=== PATIENT | female | born 1950 | race Caucasian/White ===

== ENCOUNTER 2018-07-17 09:25 | Emergency (ER) | payer MEDICARE, BC ==
[2018-07-17 09:33] VITALS: RESP 18
[2018-07-17] MEDS ORDERED: SODIUM CHLORIDE 0.9% 1,000 ML IV STA (09:39)
--- NOTE | 2018-07-17 09:58 | ED ---
General Adult HPI - General Chief complaint: Chest Pain Stated complaint: chest pain Source: patient Mode of arrival: wheelchair Limitations: no limitations - History of Present Illness Initial comments: Dictation was produced using [employer] dictation software. please excuse any grammatical, word or spelling errors. Chief Complaint: 67-year-old female with past medical history of atrial fibrillation status post ablation therapy presents with acute onset sharp chest pain at 9 AM History of Present Illness: Patient states that she was at rest when she developed sharp chest pain that radiated to the back. She also reports that he did radiate up the right side of her neck. States that her symptoms started about 9 AM and last for about 30 minutes before symptoms began to arabella. no Paresthesias of the extremities. She denies any symptoms like this in the past. Patient never experienced symptoms like this before. She does not have a history of coronary artery disease. There is strong family history of coronary artery disease in her father who had multiple interventions performed. Patient states that her symptoms are much improved since it started however she does still have some tightness in her right anterior chest. Denies any constitutional symptoms. The ROS documented in this emergency department record has been reviewed and confirmed by me. Those systems with pertinent positive or negative responses have been documented in the HPI. All other systems are other negative and/or noncontributory. - Related Data Home Medications Medication Instructions Recorded Confirmed Aspirin EC [Ecotrin] 325 mg PO DAILY 07/17/18 07/17/18 Flecainide Acetate [Tambocor] 150 mg PO BID 07/17/18 07/17/18 Vitamin B Complex 1 cap PO DAILY 07/17/18 07/17/18 Vitamin D3(Unknown Dose) 1 tab PO DAILY 07/17/18 07/17/18 Allergies Allergy/AdvReac Type Severity Reaction Status Date / Time Beef Containing Products AdvReac SEVERE Verified 07/17/18 09:57 MIGRAINES levofloxacin [From Levaquin] AdvReac Nausea & Verified 07/17/18 09:57 Vomiting & Diarrhea Review of Systems ROS Statement: Those systems with pertinent positive or pertinent negative responses have been documented in the HPI. ROS Other: All systems not noted in ROS Statement are negative. Past Medical History Past Medical History: Atrial Fibrillation History of Any Multi-Drug Resistant Organisms: None Reported Past Surgical History: Appendectomy, Section, Hernia Repair, Hysterectomy, Tonsillectomy Past Psychological History: No Psychological Hx Reported Smoking Status: Never smoker Past Alcohol Use History: Rare Past Drug Use History: None Reported General Exam - General Exam Comments Initial Comments: PHYSICAL EXAM: General Impression: Alert and oriented x3, not in acute distress HEENT: Normocephalic atraumatic, extra-ocular movements intact, pupils equal and reactive to light bilaterally, mucous membranes moist. Cardiovascular: Heart regular rate and rhythm, S1&S2 audible, no murmurs, rubs or gallops Chest: Lungs clear to auscultation bilaterally, no rhonchi, no wheeze, no rales Abdomen: Bowel sounds present, abdomen soft, non-tender, non-distended, no organomegaly Musculoskeletal: Pulses present and equal in all extremities, no peripheral edema Motor: Power 5/5 bilaterally, no focal deficits noted Neurological: CN II-XII grossly intact, no focal motor or sensory deficits noted Skin: Intact with no visualized rashes Psych: Normal affect and mood Limitations: no limitations Course Vital Signs 07/17/18 07/17/18 07/17/18 09:30 11:01 13:29 Temperature 97.8 F Pulse Rate 56 L 50 L 52 L Respiratory 18 18 18 Rate Blood Pressure 193/80 164/75 140/67 O2 Sat by Pulse 99 99 95 Oximetry Medical Decision Making - Medical Decision Making ED course: 67-year-old female presents with chief complaint of chest pain. Vital signs upon arrival shows heart rate of 56, blood pressure 193/80. Patient appears well at this time. She does have equal pulses to bilateral radial pulses. She also does have bilateral dorsalis pedis pulses that are equal. No murmurs heard on physical examination. Patient normally does not have elevated blood pressure. She states that she normally has low blood pressure. There is some suspicion that patient's symptoms represent dissection. EKG was obtained showing no acute processes. Laboratory evaluation obtained. CBC is unremarkable. Coag panel is negative. D-dimer is 0.23. Metabolic panel is unremarkable. Patient has no neurologic deficit. Her pain is controlled. There is very low clinical suspicion that patient's symptoms represent arterial dissection. She decision-making was made with patient and patient's family. They wanted to proceed with CT angio of the chest given that patient did have sharp chest pain that radiated to the back with also radiation to the neck. Symptoms could reflect arterial dissection with radiation to the right neck. Laboratory evaluation obtained showing no acute processes. 2 sets of cardiac troponins were negative. These enzymes were by 3 hours. X-ray shows no acute processes. CT angiogram of the chest shows no evidence of acute disease. No dissection. Patient reevaluated and is expressing no pain. 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 She has good follow-up and opts to see her cereal maker outpatient. Patient told to return to the emergency Department with any changes in her condition or recurrence. Patient is understandable and agreeable to plan. Patient given aspirin. EKG Interpretation: A 12 lead EKG was obtained. It was interpreted by myself and attending physician. There is a P wave before every QRS complex. Rate is 51. Rhythm is sinus bradycardia first-degree AV block, [place] interval 210, QS 90, QTC 47. QT is not prolonged. No ST segment depression or elevation. Overall, this EKG is unremarkable - Lab Data Result diagrams: 07/17/18 09:46 07/17/18 09:46 Lab Results 07/17/18 07/17/18 07/17/18 Range/Units 09:46 09:46 09:46 WBC 8.0 (3.8-10.6) k/uL RBC 4.75 (3.80-5.40) m/uL Hgb 15.1 (11.4-16.0) gm/dL Hct 45.3 (34.0-46.0) % MCV 95.5 (80.0-100.0) fL MCH 31.8 (25.0-35.0) pg MCHC 33.3 (31.0-37.0) g/dL RDW 13.5 (11.5-15.5) % Plt Count 246 (150-450) k/uL Neutrophils % 69 % Lymphocytes % 22 % Monocytes % 5 % Eosinophils % 4 % Basophils % 0 % Neutrophils # 5.5 (1.3-7.7) k/uL Lymphocytes # 1.7 (1.0-4.8) k/uL Monocytes # 0.4 (0-1.0) k/uL Eosinophils # 0.3 (0-0.7) k/uL Basophils # 0.0 (0-0.2) k/uL PT (9.0-12.0) sec INR (<1.2) APTT (22.0-30.0) sec D-Dimer (<0.60) mg/L FEU Sodium 141 (137-145) mmol/L Potassium 4.8 (3.5-5.1) mmol/L Chloride 109 H (98-107) mmol/L Carbon Dioxide 20 L (22-30) mmol/L Anion Gap 12 mmol/L BUN 16 (7-17) mg/dL Creatinine 0.80 (0.52-1.04) mg/dL Est GFR (CKD-EPI)AfAm 89 (>60 ml/min/1.73 sqM) Est GFR (CKD-EPI)NonAf 77 (>60 ml/min/1.73 sqM) Glucose 89 (74-99) mg/dL Calcium 9.4 (8.4-10.2) mg/dL Magnesium 2.1 (1.6-2.3) mg/dL Total Bilirubin 0.9 (0.2-1.3) mg/dL AST 26 (14-36) U/L ALT 28 (9-52) U/L Alkaline Phosphatase 151 H (38-126) U/L Total Creatine Kinase 101 (30-135) U/L CK-MB (CK-2) 2.3 (0.0-2.4) ng/mL CK-MB (CK-2) Rel Index 2.3 Troponin I <0.012 (0.000-0.034) ng/mL Total Protein 7.1 (6.3-8.2) g/dL Albumin 4.4 (3.5-5.0) g/dL Lipase 45 (23-300) U/L 07/17/18 07/17/18 Range/Units 09:46 13:30 WBC (3.8-10.6) k/uL RBC (3.80-5.40) m/uL Hgb (11.4-16.0) gm/dL Hct (34.0-46.0) % MCV (80.0-100.0) fL MCH (25.0-35.0) pg MCHC (31.0-37.0) g/dL RDW (11.5-15.5) % Plt Count (150-450) k/uL Neutrophils % % Lymphocytes % % Monocytes % % Eosinophils % % Basophils % % Neutrophils # (1.3-7.7) k/uL Lymphocytes # (1.0-4.8) k/uL Monocytes # (0-1.0) k/uL Eosinophils # (0-0.7) k/uL Basophils # (0-0.2) k/uL PT 9.4 (9.0-12.0) sec INR 0.9 (<1.2) APTT 22.8 (22.0-30.0) sec D-Dimer 0.23 (<0.60) mg/L FEU Sodium (137-145) mmol/L Potassium (3.5-5.1) mmol/L Chloride (98-107) mmol/L Carbon Dioxide (22-30) mmol/L Anion Gap mmol/L BUN (7-17) mg/dL Creatinine (0.52-1.04) mg/dL Est GFR (CKD-EPI)AfAm (>60 ml/min/1.73 sqM) Est GFR (CKD-EPI)NonAf (>60 ml/min/1.73 sqM) Glucose (74-99) mg/dL Calcium (8.4-10.2) mg/dL Magnesium (1.6-2.3) mg/dL Total Bilirubin (0.2-1.3) mg/dL AST (14-36) U/L ALT (9-52) U/L Alkaline Phosphatase (38-126) U/L Total Creatine Kinase (30-135) U/L CK-MB (CK-2) (0.0-2.4) ng/mL CK-MB (CK-2) Rel Index Troponin I <0.012 (0.000-0.034) ng/mL Total Protein (6.3-8.2) g/dL Albumin (3.5-5.0) g/dL Lipase (23-300) U/L Disposition Clinical Impression: Chest pain Disposition: HOME SELF-CARE Instructions: Chest Pain (ED) Is patient prescribed a controlled substance at d/c from ED?: No Referrals: Daisy Leo MD [Primary Care Provider] - 1-2 days Time of Disposition: 14:35
[2018-07-17 10:27] LABS: Basophils % (A) 0 %; Eosinophils # (A) 0.3 k/uL (0-0.7); Eosinophils % (A) 4 %; HCT 45.3 % (34.0-46.0); HGB 15.1 gm/dL (11.4-16.0); Lymphocytes # (A) 1.7 k/uL (1.0-4.8); Lymphocytes % (A) 22 %; MCH 31.8 pg (25.0-35.0); MCHC 33.3 g/dL (31.0-37.0); MCV 95.5 fL (80.0-100.0); Mean Platelet Volume 6.5; Monocytes # (A) 0.4 k/uL (0-1.0); Monocytes % (A) 5 %; Neutrophils # (A) 5.5 k/uL (1.3-7.7); Neutrophils % (A) 69 %; Platelet Count 246 k/uL (150-450); RBC 4.75 m/uL (3.80-5.40); RDW 13.5 % (11.5-15.5)
[2018-07-17 10:39] LABS: D-Dimer 0.23 mg/L FEU (<0.60); INR 0.9 (<1.2); Partial Thromboplastin Time 22.8 sec (22.0-30.0); Prothrombin Time 9.4 sec (9.0-12.0)
[2018-07-17 10:40] LABS: Albumin 4.4 g/dL (3.5-5.0); Calcium 9.4 mg/dL (8.4-10.2); Magnesium 2.1 mg/dL (1.6-2.3); Potassium 4.8 mmol/L (3.5-5.1); Total Bilirubin 0.9 mg/dL (0.2-1.3); Total Protein 7.1 g/dL (6.3-8.2)
--- NOTE | 2018-07-17 10:50 | XR ---
EXAMINATION TYPE: XR chest 2V DATE OF EXAM: 07/17/2018 COMPARISON: NONE HISTORY: Shortness of breath TECHNIQUE: Frontal and lateral views of the chest are obtained. FINDINGS: Scattered senescent parenchymal changes noted. Hyperinflation compatible with COPD. No evidence for infiltrate. No evidence for atelectasis. Heart size is stable. Mediastinal structures are stable and grossly unremarkable. No evidence for hilar prominence. Degenerative changes dorsal spine. IMPRESSION: 1. No evidence for acute pulmonary disease.
[2018-07-17 11:30] LABS: Creatine Kinase 101 U/L (30-135)
[2018-07-17 11:43] LABS: Creatine Kinase MB 2.3 ng/mL (0.0-2.4); Troponin I <0.012 ng/mL (0.000-0.034)
--- NOTE | 2018-07-17 13:15 | CT ---
EXAMINATION TYPE: CT angio chest DATE OF EXAM: 07/17/2018 COMPARISON: None HISTORY: Chest pains CT DLP: 939 mGycm CONTRAST: CTA thoracic aorta with 3-D reconstruction is performed and without and with IV Contrast, patient inj ected with 100 mL of Isovue 370. Contrast CTA of the thoracic aorta was performed from the lung apex through the upper abdomen. 3D re construction imaging obtained at a separate workstation. CT Chest: THORACIC AORTA: No evidence for thoracic aortic aneurysm. Mild atheromatous changes seen. There is n o evidence for dissection or periaortic collection. LUNGS: Calcified granuloma noted. The lungs are clear and free of infiltrate or atelectasis. No pulm onary nodule or mass is detected. No pleural effusion or CT evidence of interstitial lung disease. MEDIASTINUM: Small pericardial effusion. Pulmonary arteries are well opacified. No evidence for medi astinal hematoma. The heart is not enlarged. No evidence for mediastinal mass or adenopathy. HILAR STRUCTURES: No evidence for mass. No hilar adenopathy is appreciated. OTHER: Noncalcified cholelithiasis. Calcified splenic granulomas. IMPRESSION- 1. No evidence for thoracic aortic aneurysm or dissection. Pulmonary arteries are patent.
[2018-07-17] MEDS ORDERED: ASPIRIN 81 MG PO STA (14:34)
[2018-07-17 14:50] VITALS: BP 129/59; PULSE 80; TEMP 97.6
== END 2018-07-17 14:51 | disposition home or self-care (01) ==
LOC: EC 09:25
DX: R07.9 Chest pain, unspecified (principal); I48.91 Unspecified atrial fibrillation; Z98.890 Other specified postprocedural states; Z82.49 Family history of ischemic heart disease and other diseases of the circulatory system; Z79.82 Long term (current) use of aspirin; Z79.899 Other long term (current) drug therapy; Z91.018 Allergy to other foods; Z88.1 Allergy status to other antibiotic agents
CPT/HCPCS: 36415; 93005; 85379; 80053; 82550; 82553; 83690; 83735; 84484; 85025; 85610; 85730; 71046; 71275; 99285; Q9967

== ENCOUNTER → 2018-12-29 | Outpatient (CLI) | payer MEDICARE, BC ==
--- NOTE | 2018-12-29 20:14 | CONS ---
CONSULTATION REASON FOR CONSULTATION: Sleep apnea. This 68-year-old female patient has paroxysmal atrial fibrillation. She is currently on flecainide and her current rhythm is sinus. Her sleep study was ordered and completed by Dr. Mensah. The patient went to see him for some increased sleepiness, and based on her previous history of paroxysmal atrial fibrillation, a sleep study was conducted. The patient typically goes to bed late. She has some sleep hygiene issues. She eats late snacks. She watches TV. She tries to sleep on the couch and later on moves herself to the bedroom. Her Sravan had sleep apnea and he had loud snoring in the bedroom which was affecting her sleep quality. She will ultimately get out of bed around 5:30 to help with her grandkids going to school. On days when she does not have any commitments, she gets out of bed around 7:00. She has some snoring which is soft. She has nocturia. She has occasional nocturnal palpitations. No grinding of the teeth. No sleepwalking. No waking up choking or gasping for air. No restlessness in the lower extremities, although she has been told by her primary care physician that she has some peripheral neuropathy. No recent weight gain. Her polysomnogram was completed on 09/29/2018. The patient was found to have a sleep efficiency of 77%. She was able to achieve 5 hours and 45 minutes of sleep. Latency to sleep onset was 6.3 minutes. Latency to REM sleep was 20.5 minutes. Sleep architecture was characterized by 7.5% stage I, 75.3% stage II, 10% stage III and 7.2% REM sleep. She was found to have mild obstructive sleep apnea with an AHI of 11. The events were REM-specific and the patient developed severe nocturnal oxygen desaturations during REM only. She spent approximately 15 minutes of the total sleep time at a pulse ox of less than 90%, accounting for less than 5% of the overall sleep time. She had also excessive periodic limb movements; however, these were not associated with arousals. Her periodic limb movement index was 57. She also had one run of atrial fibrillation that converted spontaneously. PAST MEDICAL HISTORY: 1. Paroxysmal atrial fibrillation. 2. Peripheral neuropathy. PAST SURGICAL HISTORY: Includes: 1. Tonsillectomy. 2. Appendectomy. 3. Hernia surgery. 4. Ablation of atrial fibrillation. 5. Two C-sections. 6. Hysterectomy. DRUG ALLERGIES: NOT KNOWN. OUTPATIENT MEDICATIONS: 1. Flecainide. 2. Aspirin. 3. Vitamin B complex. 4. Vitamin D. SOCIAL HISTORY: Nonsmoker. No history of alcoholism. No history of IV drugs. FAMILY HISTORY: Noncontributory. Negative for sleep apnea. Her has HIRA. REVIEW OF SYSTEMS: Twelve-point review of systems was done. Positive findings were all mentioned above in the history of present illness. The patient does not have any problems with falling asleep during the day. She does that only when she is watching a show late in the afternoon. No problems with memory or concentration. No problems with anxiety or depression. No problems with restlessness in the lower extremities, although she has periodic limb movements. She has some issues with claustrophobia. PHYSICAL EXAMINATION: BP is 159/82, pulse 60, respirations 16, temperature 97.5, saturation 96% on room air. Weight is 199, height 5 feet 6 inches. Neck size is 14 inches. BMI 31.6. GENERAL APPEARANCE: Calm, comfortable. Head is atraumatic, normocephalic. NECK: Supple. There is no JVD. No goiter or neck masses. Mallampati class III. LUNGS: Clear to auscultation. HEART: Heart sounds are regular rate and rhythm. Normal S1, S2. No S3, S4. No murmurs. ABDOMEN: Soft, nontender. No organomegaly. EXTREMITIES: No edema. No cyanosis or clubbing. NEUROLOGIC: Alert and oriented x3. No focal neurological deficits. PSYCHIATRIC: Negative for anxiety or depression. SKIN: Negative for any wounds or ulceration. IMPRESSION: 1. Mild obstructive sleep apnea with an apnea/hypopnea index of 11. Patient's disease is REM-specific. 2. Mild nocturnal oxygen desaturation, again REM-specific, in association with obstructive hypopneas, as the patient spent approximately 4% to 5% of her sleep time at a pulse ox of less than 90%. 3. Paroxysmal atrial fibrillation. 4. Peripheral neuropathy with excessive periodic limb movements. These are not causing any significant sleep fragmentation. The patient's PLM index was 57. 5. Abnormalities in sleep architecture with over-representation of stage II sleep with diminished delta wave and REM. 6. Poor sleep hygiene issues, as discussed above. PLAN: I had a lengthy discussion with the patient. Ideally this patient would benefit from CPAP therapy, especially with her history of paroxysmal atrial fibrillation. Her sleep architecture is abnormal and she has enough pathology in her sleep study to recommend CPAP therapy. Nevertheless, she was quite hesitant to initiate treatment at this point. Overall her disease is mild and we should be able to give this patient conservative watchful time periods, during which the patient needs to lose around 10% of her body weight, implement good sleep hygiene measures, extend her sleep hours, eliminate late food and proceed with relaxation techniques and other activities that promote sleep. All of these things were discussed with the patient at length. If she becomes symptomatic and/or her atrial fibrillation becomes an ongoing issue, we will consider re-evaluation and CPAP therapy. She was agreeable to this approach. I will see her back in followup. [place] / IGNACION: [id number] /
== END ==
LOC: SLEEP 16:22
PROVIDERS: ATTEND Internal Medicine Critical Care Medicine
DX: G47.33 Obstructive sleep apnea (adult) (pediatric) (principal); I48.0 Paroxysmal atrial fibrillation; G62.9 Polyneuropathy, unspecified; G47.61 Periodic limb movement disorder; Z79.899 Other long term (current) drug therapy; Z79.82 Long term (current) use of aspirin; Z98.890 Other specified postprocedural states; Z90.89 Acquired absence of other organs; Z90.49 Acquired absence of other specified parts of digestive tract; Z90.710 Acquired absence of both cervix and uterus
CPT/HCPCS: 99211

== ENCOUNTER → 2019-09-29 | Outpatient (CLI) | payer MEDICARE, BC ==
[2019-09-29 11:24] LABS: Basophils # (A) 0.1 k/uL (0-0.2); Basophils % (A) 1 %; Eosinophils # (A) 0.3 k/uL (0-0.7); Eosinophils % (A) 3 %; HCT 43.2 % (34.0-46.0); HGB 14.8 gm/dL (11.4-16.0); Lymphocytes # (A) 1.9 k/uL (1.0-4.8); Lymphocytes % (A) 22 %; MCHC 34.3 g/dL (31.0-37.0); MCV 96.4 fL (80.0-100.0); Mean Platelet Volume 5.7; Monocytes # (A) 0.4 k/uL (0-1.0); Monocytes % (A) 5 %; Neutrophils # (A) 5.7 k/uL (1.3-7.7); Neutrophils % (A) 67 %; Platelet Count 270 k/uL (150-450); RBC 4.48 m/uL (3.80-5.40); RDW 12.8 % (11.5-15.5); WBC 8.4 k/uL (3.8-10.6)
[2019-09-29 16:47] LABS: T4, Free (Free Thyroxine) 0.9 ng/dL (0.80-1.80)
[2019-09-29 16:55] LABS: African American GFR (CKD) 88.4 (60.0-200.0); Albumin 4.5 g/dL (3.80-4.90); Albumin/Globulin Ratio 2.5 (1.60-3.17); Anion Gap 12.2 mmol/L (4.00-12.00); BUN/Creat Ratio 28.75 Ratio (12.00-20.00); Calcium 9.1 mg/dL (8.7-10.3); Carbon Dioxide 23.8 mmol/L (21.6-31.8); Chol/HDL Ratio 3.37; Globulin 1.8 g/dL (1.6-3.3); LDL Cholesterol,Calculated 84.8 mg/dL (0.0-131.0); Non-African American GFR(CKD) 76.3 (60.0-200.0); Potassium 4.3 mmol/L (3.5-5.5); Total Bilirubin 0.8 mg/dL (0.2-1.2); Total Protein 6.3 g/dL (6.2-8.2); VLDL Calculation 17.2 mg/dL (5.00-40.00)
[2019-09-29 19:06] LABS: Hemoglobin A1C 5.5 % (4.0-6.0)
== END | disposition home or self-care (01) ==
LOC: LABWHC1 09:48
PROVIDERS: ATTEND Internal Medicine
DX: M81.0 Age-related osteoporosis without current pathological fracture (principal); E78.2 Mixed hyperlipidemia; I48.91 Unspecified atrial fibrillation; R73.01 Impaired fasting glucose
CPT/HCPCS: 36415; 80053; 80061; 83036; 84439; 84443; 85025

== ENCOUNTER → 2020-12-22 | Outpatient (CLI) | payer MEDICARE, BC ==
--- NOTE | 2020-12-22 13:22 | CT ---
EXAMINATION TYPE: CT angio head neck DATE OF EXAM: 12/22/2020 HISTORY: hemicrania continua, hypertension, pounding JOSE COMPARISON: None. CT DLP: 1328.9 mGycm. Automated Exposure Control for Dose Reduction was Utilized. TECHNIQUE: CTA scan of the head and neck are performed without and with IV Contrast, patient injecte d with 65 mL of Isovue 370, axial images are obtained, coronal and sagittal reformatted images are re viewed. Three-D reconstructed images are created on an independent workstation and reviewed. FINDINGS: Carotid/Vascular Structures: Normal 3 vessel origin from aortic arch without significant plaque or st enosis. Normal origin right common carotid artery from the brachiocephalic artery. No significant tegan que in the common or internal carotid arteries bilaterally including a level of carotid bulbs. Patent bilateral external carotid arteries without significant plaque or stenosis. There is dominant and larger caliber left vertebral artery. Vertebral arteries are patent to the basi lar junction. There are small caliber but patent left posterior communicating artery. There is simila r finding on right. There is no significant focal stenosis or aneurysmal change in the posterior circ ulation. 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 There is no significant focal stenosis or aneurysmal change identified. Other: Noncontrast images show no acute intracranial hemorrhage or midline shift. Mild ventricular an d sulcal prominence. More moderate low-attenuation in the deep and periventricular white matter. Glob es are intact. Loss of normal cervical curvature with mild disc space narrowing C5-C6 level. IMPRESSION: No significant stenosis in common or internal carotid arteries bilaterally. No significan t stenosis or aneurysm at the level of the la posta of Celestin. Mild diffuse cerebral atrophy and modera te nonspecific white matter changes noted on noncontrast CT.
== END | disposition home or self-care (01) ==
LOC: RADCTMAIN 11:56
PROVIDERS: ATTEND Internal Medicine
DX: R90.89 Other abnormal findings on diagnostic imaging of central nervous system (principal)
CPT/HCPCS: 70496; 70498; Q9967

== ENCOUNTER → 2021-01-31 | Outpatient (CLI) | payer MEDICARE, BC ==
--- NOTE | 2021-01-31 12:45 | US ---
EXAMINATION TYPE: US gallbladder DATE OF EXAM: 01/31/2021 COMPARISON: NONE CLINICAL HISTORY: R10.13 DYSPEPSIA. dyspepsia, RUQ pain EXAM MEASUREMENTS: Liver Length: 14.5 cm Gallbladder Wall: 0.2 cm CBD: 0.8 cm this is slightly prominent for the patient's age. Right Kidney: 10.1 x 4.1 x 4.6 cm Pancreas: Obscured by bowel gas Liver: wnl Gallbladder: stones noted Evidence for sonographic Hoyt's sign: no CBD: appears dilated Right Kidney: no evidence of hydronephrosis IMPRESSION: 1. Mild dilatation of the common bile duct. 2. Cholelithiasis is present.
== END ==
LOC: RADUSWWP 06:56
PROVIDERS: ATTEND Internal Medicine
DX: K80.20 Calculus of gallbladder without cholecystitis without obstruction (principal); K83.8 Other specified diseases of biliary tract
CPT/HCPCS: 76705

== ENCOUNTER → 2021-02-07 | Outpatient (CLI) | payer MEDICARE, BC ==
[2021-02-07 10:49] LABS: Basophils # (A) 0.05 X 10*3/uL (0.00-0.10); Basophils % (A) 0.4 %; Eosinophils # (A) 0.29 X 10*3/uL (0.04-0.35); Eosinophils % (A) 2.5 %; HCT 42.2 % (37.2-46.3); Lymphocytes # (A) 1.51 X 10*3/uL (0.90-5.00); MCH 32.3 pg (27.0-32.0); MCHC 33.2 g/dL (32.0-37.0); MCV 97.2 fL (80.0-97.0); Mean Platelet Volume 9.5 fL (9.5-12.2); Monocytes # (A) 0.75 X 10*3/uL (0.20-1.00); Monocytes % (A) 6.4 %; Neutrophils % (A) 77.4 %; Platelet Count 261 X 10*3/uL (140-440); RBC 4.34 X 10*6/uL (4.10-5.20); RDW 12.5 % (11.5-14.5); WBC 11.64 X 10*3/uL (4.50-10.00)
[2021-02-07 13:31] LABS: African American GFR (CKD) 66.6 (60.0-200.0); Albumin 4.6 g/dL (3.80-4.90); Albumin/Globulin Ratio 2.56 (1.60-3.17); Calcium 9.6 mg/dL (8.7-10.3); Chol/HDL Ratio 3.16; Globulin 1.8 g/dL (1.6-3.3); LDL Cholesterol,Calculated 81.8 mg/dL (0.0-131.0); Non-African American GFR(CKD) 57.4 (60.0-200.0); Potassium 4.3 mmol/L (3.5-5.5); Total Bilirubin 0.8 mg/dL (0.2-1.2); Total Protein 6.4 g/dL (6.2-8.2); VLDL Calculation 13.2 mg/dL (5.00-40.00)
== END | disposition home or self-care (01) ==
LOC: LABWHC1 06:57
PROVIDERS: ATTEND Internal Medicine
DX: Z00.00 Encounter for general adult medical examination without abnormal findings (principal); E55.9 Vitamin D deficiency, unspecified; E78.2 Mixed hyperlipidemia
CPT/HCPCS: 36415; 80053; 80061; 82306; 84443; 85025

== ENCOUNTER → 2021-02-19 | Outpatient (CLI) | payer MEDICARE, BC ==
--- NOTE | 2021-02-20 07:14 | CT ---
EXAMINATION TYPE: CT abdomen pelvis wo/w con DATE OF EXAM: 02/19/2021 COMPARISON: 08/05/2010 HISTORY: RUQ pain, hx diverticulitis CT DLP: 1873.30 mGycm CONTRAST: CT scan of the abdomen and pelvis is performed without and with Oral Contrast and with IV Contrast, p atient injected with 100 mL of Isovue 300. FINDINGS: LUNG BASES-: No visible nodule. No infiltrate. LIVER/GB: Calcified gallstones identified. No space occupying hepatic lesion. Biliary tree is of norm al caliber. PANCREAS: No inflammation. No distinct mass. SPLEEN: No splenic enlargement. No lesion seen. Splenic granulomas noted. ADRENALS: No nodule. No thickening. KIDNEYS/BLADDER: No hydronephrosis. No nephrolithiasis. No distinct renal mass. Urinary bladder g rossly unremarkable. BOWEL: Normal appendix. Normal bowel caliber. No inflammation. GENITAL ORGANS: No gross abnormality. LYMPH NODES: No greater than 1cm abdominal or pelvic lymph nodes are appreciated. AORTA: No significant abnormality. OSSEOUS STRUCTURES: 4.6 cm sacral Tarlov cyst. Mild scattered degenerative changes visualized lumbar spine. OTHER: No significant additional abnormality is seen. IMPRESSION: 1. Uncomplicated cholelithiasis. 2. Evidence of remote granulomatous disease. 3. No acute process seen.
== END | disposition home or self-care (01) ==
LOC: RADCTMAIN 14:17
PROVIDERS: ATTEND Surgery
DX: K80.20 Calculus of gallbladder without cholecystitis without obstruction (principal)
CPT/HCPCS: 82565; 84520; 74178; 36415; Q9967

== ENCOUNTER 2021-02-26 07:26 | Day surgery (SDC) | payer MEDICARE, BC ==
[2021-02-20 12:29] VITALS: BMI 30.4
[~2021-02-26 07:26] MED LIST: ACETAMINOPHEN TAB 500 MG TAB PO PRN; DEXAMETHASONE SOD PHOSPHATE 4 MG/ML 1 ML VIAL IV ONE; HEPARIN SODIUM,PORCINE/PF 5,000 UNIT/0.5 ML SYRINGE SQ PRN; HYDROmorphone 0.5 MG/0.5 ML SYRINGE IVP PRN; LIDOCAINE 1% (10MG/ML) FOR IV START INTRADERMA PRN; MIDAZOLAM 2 MG/2 ML VIAL IV PRN; ONDANSETRON 4 MG/2 ML VIAL IVP ONE
[2021-02-26 07:53] VITALS: TEMP 98.2
--- NOTE | 2021-02-26 07:57 | P.HPADDEND ---
H&P Addendum H&P Addendum Date: 02/26/21 Patient's CAT scan was reviewed with her by phone. No other etiology to explain her right-sided pain was seen. We'll proceed with laparoscopic cholecystectomy, possible open today.
[2021-02-26] MEDS: LACTATED RINGERS 1,000 ML IV SCH ×2 (08:03→10:55)
[2021-02-26] MEDS ORDERED: LIDOCAINE 1% INJ 10MG/ML (20 ML MDV) ONE (09:11)
[2021-02-26] MEDS ORDERED: NEOSTIGMINE 1 MG/ML 10 ML VIAL ONE (09:11)
[2021-02-26] MEDS ORDERED: MIDAZOLAM 2 MG/2 ML VIAL ONE (09:11)
[2021-02-26] MEDS ORDERED: GLYCOPYRROLATE 0.2 MG/ML 2 ML VIAL ONE (09:11)
[2021-02-26] MEDS ORDERED: PROPOFOL 10 MG/ML 20 ML VIAL IV ONE (09:11)
[2021-02-26] MEDS ORDERED: fentaNYL (PF) 50 MCG/ML 2 ML AMP ONE (09:11)
[2021-02-26] MEDS ORDERED: ROCURONIUM 10 MG/ML (5 ML VIAL) IV ONE (09:11)
[2021-02-26] MEDS ORDERED: SUCCINYLCHOLINE CHLORIDE 100 MG/5 ML SYR IV ONE (09:11)
[2021-02-26] MEDS ORDERED: BUPIVACAINE (PF) 0.5% 30 ML VIAL SQ ONE ×2 (09:39)
--- NOTE | 2021-02-26 10:15 | P.OP ---
Date of Procedure: 02/26/21 Procedure(s) Performed: PREOPERATIVE DIAGNOSIS: Chronic cholecystitis POSTOPERATIVE DIAGNOSIS: Same PROCEDURE: Laparoscopic cholecystectomy SURGEON: Charity EBL: Minimal see anesthesia record ANESTHESIA: Gen. COMPLICATIONS: None OPERATIVE PROCEDURE: The patient was brought and placed on the operating room table in the supine position. The patient was placed under general anesthesia at that time. The abdomen was prepped and draped in the usual sterile fashion. A small vertical infraumbilical incision was made. The fascia was grasped with the Saskia forceps. The fascia was retracted anteriorly. The Veress needle was advanced into the peritoneal cavity. The saline drop test was normal. Insufflation took place up to 15 mmHg. A 5 mm optical trocar was advanced and the peritoneal cavity. 2 additional 5 mm trochars were placed in the right upper quadrant under direct visualization. A 12 mm trocar was advanced into the epigastric incision site. The gallbladder was retracted superiorly and laterally. The peritoneum overlying the infundibulum was bluntly dissected. The patient's cystic duct was visualized. The junction between the cystic duct common and hepatic duct was identified. The cystic duct was then divided after placement of 3 12 mm clips on the patient's side and one on the specimen side. The cystic artery was identified and clipped as well. A small vessel was seen along the gallbladder fossa and clipped as well. The gallbladder was then removed from the liver bed using electrocautery. The gallbladder was then removed from the epigastric trocar site with an Endo Catch bag. The gallbladder fossa was irrigated with saline. There was no evidence of any bleeding or biliary drainage seen. The fascia at the 12 millimeter site was closed using a Tom-Nick 0 Vicryl stitch. The trochars were then removed. The skin at all 4 sites was closed using a 4-0 Monocryl stitch. Skin glue was utilized on the incision sites. At the end of this procedure the sponge and needle counts were correct. DISPOSITION: Stable to the recovery room
[2021-02-26] MEDS ORDERED: ONDANSETRON 4 MG/2 ML VIAL IVP ONE ×2 (10:52)
[2021-02-26] MEDS ORDERED: HYDROmorphone 0.5 MG/0.5 ML SYRINGE IVP ONE ×2 (10:52)
[2021-02-26] MEDS ORDERED: METOCLOPRAMIDE 5 MG/ML 2 ML VIAL IVP ONE (11:09)
[2021-02-26] MEDS ORDERED: KETOROLAC 15 MG/ML 1 ML VIAL ONE (11:56)
[2021-02-26] MEDS ORDERED: ACETAMINOPHEN TAB 325 MG TAB PO SCH (12:00)
[2021-02-26] MEDS ORDERED: KETOROLAC 15 MG/ML 1 ML VIAL IVP ONE (12:01)
[2021-02-26] MEDS ORDERED: IBUPROFEN 600 MG TAB PO SCH (13:12)
[2021-02-26 14:51] VITALS: BP 134/80; PULSE 57; RESP 16
== END 2021-02-26 15:21 | disposition home or self-care (01) ==
LOC: OR 07:26
PROVIDERS: ATTEND Surgery
DX: K80.10 Calculus of gallbladder with chronic cholecystitis without obstruction (principal); I10 Essential (primary) hypertension; E78.5 Hyperlipidemia, unspecified; I48.91 Unspecified atrial fibrillation; Z79.82 Long term (current) use of aspirin; Z79.899 Other long term (current) drug therapy
CPT/HCPCS: 88304; 47562; J2250; J1100; J2710; J2765; J0690; J2405; J2001; J3010; J1885; J0330; J2704; J1170; J1644

== ENCOUNTER → 2021-03-13 | Outpatient (CLI) | payer MEDICARE, BC ==
--- NOTE | 2021-03-13 10:15 | BD ---
EXAMINATION TYPE: Axial Bone Density DATE OF EXAM: 03/13/2021 COMPARISON: 04/19/2011 CLINICAL HISTORY: Postmenopausal female. Height: 66 IN Weight: 195 LBS FRAX RISK QUESTIONS: Family History (Parent hip fracture): YES FATHER Secondary Osteoporosis: 3. Menopause before 45: TOTAL HYST AGE 34 RISK FACTORS HISTORY OF: Active: MODERATE Postmenopausal woman: TOTAL HYST AGE 34 Take estrogen and/or progesterone medications: NOT NOW How long: TOOK FOR 2 YEARS AFTER HYSTERECTOMY MEDICATIONS: Additional Medications: VIT D, HEART MEDS, ANTIBIOTIC AUGMENTIN,MULTI VIT, VIT B, EXAM MEASUREMENTS: Bone mineral densitometry was performed using the [employer] System. Bone mineral density as measured about the Lumbar spine is: ----- L1-L4(G/cm2): 1.032 T Score Values are as follows: ----- L2: -1.2 ----- L3: -2.0 ----- L4: -0.5 ----- L1-L4: -1.2 Bone mineral density has: Decreased -0.8% since study of: 04/19/2011 Bone mineral density about the R hip (g/cm2): 0.906 Bone mineral density about the L hip (g/cm2): 0.874 T Score values are as follows: -----R Neck: -1.0 -----L Neck: -1.2 -----R Total: 0.3 -----L Total: -0.2 Bone mineral density has: Decreased -2.6% since study of: 04/19/2011 IMPRESSION: Osteopenia (T Score between -2.5 and -1) remains present. There remains slightly increased risk of fracture and the patient may be considered for treatment. Re-Screen 2-5 years. NOTE: T-SCORE=SD OF THE YOUNG ADULT MEAN.
--- NOTE | 2021-03-13 10:36 | MM ---
Reason for exam: screening (asymptomatic). Last mammogram was performed 9 years and 11 months ago. History: Patient is postmenopausal and history of other cancer. Family history of premenopausal breast cancer in sister. Physical Findings: A clinical breast exam by your physician is recommended on an annual basis and results should be correlated with mammographic findings. MG 3D Screening Mammo W/Cad Bilateral CC and MLO view(s) were taken. XCCL view(s) were taken of the right breast. Prior study comparison: January 14, 2019, mammogram, performed at [facility]. There are scattered fibroglandular densities. There are benign appearing round calcifications bilaterally. There is no discrete abnormality. ASSESSMENT: Benign, BI-RAD 2 RECOMMENDATION: Routine screening mammogram of both breasts in 1 year.
== END | disposition home or self-care (01) ==
LOC: RADMAMWWP 07:21
PROVIDERS: ATTEND Internal Medicine
DX: Z12.31 Encounter for screening mammogram for malignant neoplasm of breast (principal); M85.89 Other specified disorders of bone density and structure, multiple sites; Z80.3 Family history of malignant neoplasm of breast; Z78.0 Asymptomatic menopausal state
CPT/HCPCS: 77063; 77067; 77080

== ENCOUNTER → 2021-05-28 | Outpatient (CLI) | payer MEDICARE, BC ==
--- NOTE | 2021-05-28 11:23 | XR ---
EXAMINATION TYPE: XR facial bones complete DATE OF EXAM: 05/28/2021 HISTORY: Pain trauma TECHNIQUE: Three views of the facial bones are submitted. FINDINGS: No evidence for displaced or depressed facial bone fracture there is opacification of the r ight maxillary sinus. The left maxillary sinus appears to be well-aerated. Soft tissues are radiograp hically intact. IMPRESSION: No evidence for displaced or depressed facial bone fracture. If symptoms persist conside r CT.
== END | disposition home or self-care (01) ==
LOC: RADXRMAIN 10:11
PROVIDERS: ATTEND Internal Medicine
DX: S09.93XA Unspecified injury of face, initial encounter (principal)
CPT/HCPCS: 70150

== ENCOUNTER 2021-08-26 13:26 | Inpatient (IN) | payer MEDICARE, BC ==
--- NOTE | 2021-08-26 14:06 | ED ---
Weakness HPI - General Chief complaint: Weakness Stated complaint: weakness/sob Source: patient Mode of arrival: EMS Limitations: no limitations - History of Present Illness Initial comments: 70 year old female past medical history of A. fib status post ablation who presents emergency department for fevers, cough and weakness. She reports that her symptoms have been present for the past 12 days. She did visit her cousin in [place] who tested positive for Covid. Patient is not vaccinated. States that she has been nauseated with decreased oral intake. Admits to vomiting and some diarrhea. Denies black or bloody stools. No chest pain. Patient has no abdominal pain. No previous underlying pulmonary conditions. Admits to fevers. No other alleviating, precipitating or modifying factors - Related Data Home Medications Medication Instructions Recorded Confirmed Flecainide Acetate [Tambocor] 150 mg PO BID 07/17/18 08/26/21 Cholecalciferol (Vitamin D3) 125 mcg PO DAILY 02/20/21 08/26/21 [Vitamin D3 (5000 Iu)] lisinopriL [Zestril] 2.5 mg PO HS 08/26/21 08/26/21 Allergies Allergy/AdvReac Type Severity Reaction Status Date / Time Beef Containing Products AdvReac SEVERE Verified 08/26/21 14:04 MIGRAINES levofloxacin [From Levaquin] AdvReac Nausea & Verified 08/26/21 14:04 Vomiting & Diarrhea Review of Systems ROS Statement: Those systems with pertinent positive or pertinent negative responses have been documented in the HPI. ROS Other: All systems not noted in ROS Statement are negative. Past Medical History Past Medical History: Atrial Fibrillation History of Any Multi-Drug Resistant Organisms: None Reported Past Surgical History: Appendectomy, Section, Hernia Repair, Hysterectomy, Tonsillectomy Past Psychological History: No Psychological Hx Reported Past Alcohol Use History: Rare - Past Family History Mother Family Medical History: No Reported History Father Family Medical History: Congestive Heart Failure (CHF), Diabetes Mellitus General Exam Limitations: no limitations Course Vital Signs 08/26/21 08/26/21 08/26/21 13:31 13:47 14:00 Temperature 99.1 F Pulse Rate 60 66 Respiratory 18 Rate Blood Pressure 137/76 126/72 O2 Sat by Pulse 95 94 L 93 L Oximetry 08/26/21 08/26/21 08/26/21 14:30 15:00 15:30 Temperature Pulse Rate 70 72 68 Respiratory 18 18 Rate Blood Pressure 128/73 139/75 130/75 O2 Sat by Pulse 94 L 95 95 Oximetry 08/26/21 08/26/21 15:47 15:51 Temperature Pulse Rate Respiratory Rate Blood Pressure O2 Sat by Pulse 87 L 94 L Oximetry EKG Findings - EKG Comments: EKG Findings:: EKG demonstrates normal sinus rhythm with a ventricular rate of 70. AL interval 188. QRS 92. QTC of 470. No acute ST segment elevations or depressions Medical Decision Making - Medical Decision Making On arrival patient is placed into room 4. A thorough history and physical exam was performed. IV is established and laboratory studies were conducted. Patient does have Covid saw performed. Lab studies are reviewed. Covid is detected. Chest x-ray demonstrates bibasilar opacities. She is taken off of her oxygen and does desat down to 87%. She is placed back on 4 L. She is given a dose of Decadron. Did recommend admission for her hypoxia. Spoke with Dr. Leo who agreed to admit the patient. I will place pulmonology on consult. Patient agreed to the treatment plan was taken to the floor in stable condition - Lab Data Result diagrams: 08/26/21 13:45 08/26/21 13:45 Lab Results 08/26/21 08/26/21 08/26/21 Range/Units 13:45 13:45 13:45 WBC 7.9 (3.8-10.6) k/uL RBC 4.01 (3.80-5.40) m/uL Hgb 13.1 (11.4-16.0) gm/dL Hct 38.6 (34.0-46.0) % MCV 96.3 (80.0-100.0) fL MCH 32.5 (25.0-35.0) pg MCHC 33.8 (31.0-37.0) g/dL RDW 12.3 (11.5-15.5) % Plt Count 367 (150-450) k/uL MPV 7.1 Neutrophils % 84 % Lymphocytes % 9 % Monocytes % 5 % Eosinophils % 1 % Basophils % 0 % Neutrophils # 6.6 (1.3-7.7) k/uL Lymphocytes # 0.7 L (1.0-4.8) k/uL Monocytes # 0.4 (0-1.0) k/uL Eosinophils # 0.1 (0-0.7) k/uL Basophils # 0.0 (0-0.2) k/uL PT 10.5 (9.0-12.0) sec INR 1.0 (<1.2) APTT 23.6 (22.0-30.0) sec D-Dimer 0.48 (<0.60) mg/L FEU Sodium 136 L (137-145) mmol/L Potassium 3.8 (3.5-5.1) mmol/L Chloride 103 (98-107) mmol/L Carbon Dioxide 25 (22-30) mmol/L Anion Gap 8 mmol/L BUN 15 (7-17) mg/dL Creatinine 0.73 (0.52-1.04) mg/dL Est GFR (CKD-EPI)AfAm >90 (>60 ml/min/1.73 sqM) Est GFR (CKD-EPI)NonAf 85 (>60 ml/min/1.73 sqM) Glucose 111 H (74-99) mg/dL Plasma Lactic Acid Jeremy (0.7-2.0) mmol/L Calcium 8.3 L (8.4-10.2) mg/dL Magnesium 2.3 (1.6-2.3) mg/dL Total Bilirubin 1.1 (0.2-1.3) mg/dL AST 29 (14-36) U/L ALT 27 (4-34) U/L Alkaline Phosphatase 113 (38-126) U/L Troponin I (0.000-0.034) ng/mL C-Reactive Protein 15.5 H (<1.0) mg/dL NT-Pro-B Natriuret Pep pg/mL Total Protein 5.8 L (6.3-8.2) g/dL Albumin 3.0 L (3.5-5.0) g/dL Coronavirus (PCR) (Not Detectd) 08/26/21 08/26/21 08/26/21 Range/Units 13:45 13:45 13:45 WBC (3.8-10.6) k/uL RBC (3.80-5.40) m/uL Hgb (11.4-16.0) gm/dL Hct (34.0-46.0) % MCV (80.0-100.0) fL MCH (25.0-35.0) pg MCHC (31.0-37.0) g/dL RDW (11.5-15.5) % Plt Count (150-450) k/uL MPV Neutrophils % % Lymphocytes % % Monocytes % % Eosinophils % % Basophils % % Neutrophils # (1.3-7.7) k/uL Lymphocytes # (1.0-4.8) k/uL Monocytes # (0-1.0) k/uL Eosinophils # (0-0.7) k/uL Basophils # (0-0.2) k/uL PT (9.0-12.0) sec INR (<1.2) APTT (22.0-30.0) sec D-Dimer (<0.60) mg/L FEU Sodium (137-145) mmol/L Potassium (3.5-5.1) mmol/L Chloride (98-107) mmol/L Carbon Dioxide (22-30) mmol/L Anion Gap mmol/L BUN (7-17) mg/dL Creatinine (0.52-1.04) mg/dL Est GFR (CKD-EPI)AfAm (>60 ml/min/1.73 sqM) Est GFR (CKD-EPI)NonAf (>60 ml/min/1.73 sqM) Glucose (74-99) mg/dL Plasma Lactic Acid Jeremy 1.2 (0.7-2.0) mmol/L Calcium (8.4-10.2) mg/dL Magnesium (1.6-2.3) mg/dL Total Bilirubin (0.2-1.3) mg/dL AST (14-36) U/L ALT (4-34) U/L Alkaline Phosphatase (38-126) U/L Troponin I <0.012 (0.000-0.034) ng/mL C-Reactive Protein (<1.0) mg/dL NT-Pro-B Natriuret Pep 205 pg/mL Total Protein (6.3-8.2) g/dL Albumin (3.5-5.0) g/dL Coronavirus (PCR) (Not Detectd) 08/26/21 Range/Units 13:57 WBC (3.8-10.6) k/uL RBC (3.80-5.40) m/uL Hgb (11.4-16.0) gm/dL Hct (34.0-46.0) % MCV (80.0-100.0) fL MCH (25.0-35.0) pg MCHC (31.0-37.0) g/dL RDW (11.5-15.5) % Plt Count (150-450) k/uL MPV Neutrophils % % Lymphocytes % % Monocytes % % Eosinophils % % Basophils % % Neutrophils # (1.3-7.7) k/uL Lymphocytes # (1.0-4.8) k/uL Monocytes # (0-1.0) k/uL Eosinophils # (0-0.7) k/uL Basophils # (0-0.2) k/uL PT (9.0-12.0) sec INR (<1.2) APTT (22.0-30.0) sec D-Dimer (<0.60) mg/L FEU Sodium (137-145) mmol/L Potassium (3.5-5.1) mmol/L Chloride (98-107) mmol/L Carbon Dioxide (22-30) mmol/L Anion Gap mmol/L BUN (7-17) mg/dL Creatinine (0.52-1.04) mg/dL Est GFR (CKD-EPI)AfAm (>60 ml/min/1.73 sqM) Est GFR (CKD-EPI)NonAf (>60 ml/min/1.73 sqM) Glucose (74-99) mg/dL Plasma Lactic Acid Jeremy (0.7-2.0) mmol/L Calcium (8.4-10.2) mg/dL Magnesium (1.6-2.3) mg/dL Total Bilirubin (0.2-1.3) mg/dL AST (14-36) U/L ALT (4-34) U/L Alkaline Phosphatase (38-126) U/L Troponin I (0.000-0.034) ng/mL C-Reactive Protein (<1.0) mg/dL NT-Pro-B Natriuret Pep pg/mL Total Protein (6.3-8.2) g/dL Albumin (3.5-5.0) g/dL Coronavirus (PCR) Detected A (Not Detectd) Disposition Clinical Impression: COVID-19, Nausea and vomiting, Hypoxia Disposition: ADMITTED IP TO THIS [facility] Condition: Serious Is patient prescribed a controlled substance at d/c from ED?: No Decision to Admit Reason: Admit from EC Decision Date: 08/26/21 Decision Time: 16:29
--- NOTE | 2021-08-26 14:13 | XR ---
EXAMINATION TYPE: XR chest 1V portable DATE OF EXAM: 08/26/2021 COMPARISON: Chest x-ray 07/17/2018 HISTORY: Shortness of breath and cough TECHNIQUE: Single frontal view of the chest is obtained. FINDINGS: Bilateral peripheral airspace opacities are present and has developed in the interval. The re is no evident pneumothorax or pleural effusion. Cardiac mediastinal silhouette is stable. There is evidence of old granulomatous disease. There are overlying leads. IMPRESSION: Correlate for pneumonia.
[2021-08-26 14:16] LABS: Basophils % (A) 0 %; Eosinophils # (A) 0.1 k/uL (0-0.7); Eosinophils % (A) 1 %; HCT 38.6 % (34.0-46.0); HGB 13.1 gm/dL (11.4-16.0); Lymphocytes # (A) 0.7 k/uL (1.0-4.8); Lymphocytes % (A) 9 %; MCH 32.5 pg (25.0-35.0); MCHC 33.8 g/dL (31.0-37.0); MCV 96.3 fL (80.0-100.0); Mean Platelet Volume 7.1; Monocytes # (A) 0.4 k/uL (0-1.0); Monocytes % (A) 5 %; Neutrophils # (A) 6.6 k/uL (1.3-7.7); Neutrophils % (A) 84 %; Platelet Count 367 k/uL (150-450); RBC 4.01 m/uL (3.80-5.40); RDW 12.3 % (11.5-15.5); WBC 7.9 k/uL (3.8-10.6)
[2021-08-26 14:39] LABS: ALT 27 U/L (4-34); AST 29 U/L (14-36); African American GFR (CKD) >90 (>60 ml/min/1.73 sqM); Alkaline Phosphatase 113 U/L (38-126); Anion Gap 8 mmol/L; Blood Urea Nitrogen 15 mg/dL (7-17); Calcium 8.3 mg/dL (8.4-10.2); Carbon Dioxide 25 mmol/L (22-30); Chloride 103 mmol/L (98-107); Glucose 111 mg/dL (74-99); Magnesium 2.3 mg/dL (1.6-2.3); Non-African American GFR(CKD) 85 (>60 ml/min/1.73 sqM); Potassium 3.8 mmol/L (3.5-5.1); Sodium 136 mmol/L (137-145); Total Bilirubin 1.1 mg/dL (0.2-1.3); Total Protein 5.8 g/dL (6.3-8.2)
[2021-08-26 14:49] LABS: Partial Thromboplastin Time 23.6 sec (22.0-30.0); Prothrombin Time 10.5 sec (9.0-12.0)
[2021-08-26 14:55] LABS: C Reactive Protein 15.5 mg/dL (<1.0)
[2021-08-26] MEDS ORDERED: ONDANSETRON 4 MG/2 ML VIAL IVP STA (15:48)
[2021-08-26] MEDS ORDERED: NALOXONE 0.4 MG/ML 1 ML VIAL IV PRN (16:29)
[2021-08-26] MEDS: SODIUM CHLORIDE 0.9% 1,000 ML IV SCH (17:06)
[2021-08-26] MEDS: DEXAMETHASONE SOD PHOSPHATE 10 MG/ML 1 ML VIAL IV SCH (17:06)
[2021-08-26] MEDS: FLECAINIDE 50 MG TAB PO SCH (21:34)
[2021-08-26] MEDS: ACETAMINOPHEN TAB 325 MG TAB PO PRN (22:39)
[2021-08-27] MEDS: SODIUM CHLORIDE 0.9% 1,000 ML IV SCH ×3 (05:57→20:27)
[2021-08-27] MEDS: ACETAMINOPHEN TAB 325 MG TAB PO PRN (05:57)
[2021-08-27 07:53] LABS: African American GFR (CKD) >90 (>60 ml/min/1.73 sqM); Anion Gap 12 mmol/L; Blood Urea Nitrogen 17 mg/dL (7-17); Calcium 8.7 mg/dL (8.4-10.2); Carbon Dioxide 20 mmol/L (22-30); Chloride 106 mmol/L (98-107); Glucose 158 mg/dL (74-99); Non-African American GFR(CKD) >90 (>60 ml/min/1.73 sqM); Sodium 138 mmol/L (137-145)
[2021-08-27 07:57] LABS: Potassium 4.6 mmol/L (3.5-5.1)
[2021-08-27] MEDS: ALBUTEROL HFA INHALER INHALATION PRN ×4 (07:59→19:56)
[2021-08-27] MEDS: CHOLECALCIFEROL 25 MCG (1000 IU) TABLET PO SCH (09:38)
[2021-08-27] MEDS: ASCORBIC ACID 500 MG TAB PO SCH (09:38)
[2021-08-27] MEDS: ZINC SULFATE 220 MG CAP PO SCH (09:38)
[2021-08-27] MEDS: FLECAINIDE 50 MG TAB PO SCH ×2 (09:39→21:59)
[2021-08-27] MEDS: ENOXAPARIN 40 MG/0.4 ML SYRINGE SQ SCH (09:39)
[2021-08-27] MEDS: DEXAMETHASONE SOD PHOSPHATE 10 MG/ML 1 ML VIAL IV SCH (09:39)
[2021-08-27 11:55] LABS: Basophils # (A) 0.01 X 10*3/uL (0.00-0.10); Basophils % (A) 0.2 %; Eosinophils # (A) 0 X 10*3/uL (0.04-0.35); Eosinophils % (A) 0 %; HCT 39.9 % (37.2-46.3); HGB 13.2 g/dL (12.0-15.0); Lymphocytes # (A) 0.46 X 10*3/uL (0.90-5.00); MCH 32.2 pg (27.0-32.0); MCHC 33.1 g/dL (32.0-37.0); MCV 97.3 fL (80.0-97.0); Mean Platelet Volume 9.9 fL (9.5-12.2); Monocytes # (A) 0.21 X 10*3/uL (0.20-1.00); Monocytes % (A) 4.6 %; Neutrophils # (A) 3.87 X 10*3/uL (1.80-7.70); Neutrophils % (A) 84.5 %; Platelet Count 329 X 10*3/uL (140-440); RDW 12.1 % (11.5-14.5); WBC 4.58 X 10*3/uL (4.50-10.00)
[2021-08-27 11:56] LABS: Crenated RBC 2+
--- NOTE | 2021-08-27 14:29 | P.CNPUL ---
History of Present Illness Consult date: 08/27/21 Requesting physician: Cierra Ortega Reason for consult: dyspnea, hypoxemia, pneumonia, abnormal CXR/CT Chief complaint: Cough, hypoxia, COVID-19 pneumonia, fever, diarrhea, nausea and vomiting History of present illness: T10-year-old white female patient of Dr. Leo, with past medical history of paroxysmal atrial fibrillation with previous history of ablation, moderate obstructive sleep apnea with AHI score of 11 not on CPAP therapy and hypertension, presented with a 12 day history of COVID-19 infection symptoms. Patient recently visited her cousin in [place] who tested positive for COVID-19, patient is not vaccinated, she reports cough, fever, exhaustion, nausea vomiting and diarrhea. She denied any black or bloody stools, no abdominal pain, no chest pain, no hemoptysis. And was tested for COVID-19 and was found to be positive. Chest x-ray demonstrated bilateral opacities, patient was desaturating to 87% on room air, she was placed on 4 L of oxygen in the emergency department, which is currently up to 6 L, her pulse ox right now is around 95%. She was started on Decadron in the emergency department. Outside the window for Remdesivir. Admission blood work has been reviewed showing a white blood cell, 7.9, hemoglobin is 13.1, lymphocyte count is 0.7, d-dimer is 0.48, her electrolytes and renal profile are unremarkable, troponin is less than 0.012, CRP was 15.5, proBNP was 205. Review of Systems All systems: negative Constitutional: Reports fatigue, Reports fever, Reports poor appetite, Reports weakness, Denies chills Eyes: denies blurred vision, denies pain Ears, nose, mouth and throat: Denies headache, Denies sore throat Cardiovascular: Denies chest pain, Denies shortness of breath Respiratory: Reports cough, Reports dyspnea Gastrointestinal: Reports diarrhea, Reports loss of appetite, Reports nausea, Reports vomiting, Denies abdominal pain Genitourinary: Denies dysuria, Denies hematuria Musculoskeletal: Denies myalgias Integumentary: Denies pruritus, Denies rash Neurological: Denies numbness, Denies weakness Psychiatric: Denies anxiety, Denies depression Endocrine: Denies fatigue, Denies weight change Past Medical History Past Medical History: Atrial Fibrillation History of Any Multi-Drug Resistant Organisms: None Reported Past Surgical History: Appendectomy, Section, Hernia Repair, Hysterectomy, Tonsillectomy Past Anesthesia/Blood Transfusion Reactions: Postoperative Nausea & Vomiting (PONV) Past Psychological History: No Psychological Hx Reported Past Alcohol Use History: Rare - Past Family History Mother Family Medical History: No Reported History Father Family Medical History: Congestive Heart Failure (CHF), Diabetes Mellitus Medications and Allergies Home Medications Medication Instructions Recorded Confirmed Type Flecainide Acetate [Tambocor] 150 mg PO BID 07/17/18 08/26/21 History Cholecalciferol (Vitamin D3) 125 mcg PO DAILY 02/20/21 08/26/21 History [Vitamin D3 (5000 Iu)] lisinopriL [Zestril] 2.5 mg PO HS 08/26/21 08/26/21 History Allergies Allergy/AdvReac Type Severity Reaction Status Date / Time Beef Containing Products AdvReac SEVERE Verified 08/26/21 14:04 MIGRAINES levofloxacin [From Levaquin] AdvReac Nausea & Verified 08/26/21 14:04 Vomiting & Diarrhea Physical Exam Vitals: Vital Signs Temp Pulse Pulse Resp BP BP Pulse Ox 08/27/21 13:24 98 F 67 18 129/70 94 L 08/27/21 09:09 98.4 F 62 18 111/71 95 08/27/21 05:29 97.7 F 62 18 131/79 91 L 08/27/21 01:40 97.7 F 56 L 122/75 94 L 08/26/21 21:50 56 L 20 08/26/21 21:35 98.1 F 70 112/67 95 08/26/21 18:35 98.5 F 63 20 121/72 95 08/26/21 15:51 94 L 08/26/21 15:47 87 L 08/26/21 15:30 68 18 130/75 95 08/26/21 15:00 72 139/75 95 08/26/21 14:30 70 18 128/73 94 L Intake and Output 08/26/21 08/27/21 08/27/21 22:59 06:59 14:59 Other: Voiding Method Bedside Commode # Voids 2 # Bowel Movements 0 Weight 86.183 kg GENERAL EXAM: Alert, very pleasant, 70-year-old white female, currently on 6 L of oxygen a pulse ox of 95% comfortable in no apparent distress. HEAD: Normocephalic/atraumatic. EYES: Normal reaction of pupils, equal size. Conjunctiva pink, sclera white. NOSE: Clear with pink turbinates. THROAT: No erythema or exudates. NECK: No masses, no JVD, no thyroid enlargement, no adenopathy. CHEST: No chest wall deformity. Symmetrical expansion. LUNGS: Equal air entry with diffuse bilateral crackles CVS: Regular rate and rhythm, normal S1 and S2, no gallops, no murmurs, no rubs ABDOMEN: Soft, nontender. No hepatosplenomegaly, normal bowel sounds, no guarding or rigidity. EXTREMITIES: No clubbing, no edema, no cyanosis, 2+ pulses and upper and lower extremities. MUSCULOSKELETAL: Muscle strength and tone normal. SPINE: No scoliosis or deformity SKIN: No rashes CENTRAL NERVOUS SYSTEM: Alert and oriented -3. No focal deficits, tone is normal in all 4 extremities. PSYCHIATRIC: Alert and oriented -3. Appropriate affect. Intact judgment and insight. Results - Laboratory Findings CBC and BMP: 08/27/21 06:43 08/27/21 06:43 PT/INR, D-dimer PT 10.5 sec (9.0-12.0) 08/26/21 13:45 INR 1.0 (<1.2) 08/26/21 13:45 D-Dimer 0.48 mg/L FEU (<0.60) 08/26/21 13:45 Abnormal lab findings: Abnormal Labs 08/26/21 08/26/21 08/26/21 13:45 13:45 13:57 MCV MCH Lymphocytes # 0.7 L Eosinophils # Sodium 136 L Carbon Dioxide Glucose 111 H Calcium 8.3 L C-Reactive Protein 15.5 H Total Protein 5.8 L Albumin 3.0 L Coronavirus (PCR) Detected A 08/27/21 08/27/21 06:43 06:43 MCV 97.3 H MCH 32.2 H Lymphocytes # 0.46 L Eosinophils # 0 L Sodium Carbon Dioxide 20 L Glucose 158 H Calcium C-Reactive Protein Total Protein Albumin Coronavirus (PCR) - Diagnostic Findings Chest x-ray: report reviewed, image reviewed Additional studies: EKG reviewed Assessment and Plan Plan: Assessment: #1. Acute hypoxic respiratory failure secondary to acute COVID-19 pneumonia, with onset of symptoms 12 days ago, patient outside the window for Remdesivir. Patient is not vaccinated. Currently on Decadron, and prophylactic anticoagulation #2. Increased inflammatory markers related to the above #3. History of hypertension #4. History of obstructive sleep apnea with AHI score of 11, on CPAP therapy #5. History of paroxysmal atrial fibrillation with previous history of ablations, currently on flecainide, not on any chronic anticoagulation. Currently in sinus mechanism Plan: Continue current dose Decadron Continue prophylactic Lovenox Continue vitamins Home medications have been reordered We will continue following patient's clinical course and make further recommendations Patient is outside the window for Remdesivir We'll be considered for Baricitinib if worsening dyspnea or hypoxia I performed a history & physical examination of the patient and discussed their management with my nurse practitioner, Padmini Rawls. I reviewed the nurse practitioner's note and agree with the documented findings and plan of care. Lung sounds are positive for diminished breath sounds throughout the lung zarate. The findings and the impression was discussed with the patient. I attest to the documentation by the nurse practitioner. Time with Patient: Greater than 30
--- NOTE | 2021-08-27 15:25 | P.HPIM ---
History of Present Illness H&P Date: 08/27/21 HISTORY OF PRESENT ILLNESS This is a 70-year-old female patient with past medical history of paroxysmal atrial fibrillation, vitamin B12 deficiency anemia, vitamin D deficiency. Patient states that her and her went to visit her cousin in [place] and after 1 day cousin woke up and was having symptoms had testing done for Covid which was positive. She and her drove home but she develops symptoms. She states she's had cough with phlegm production, some diarrhea, fever and chills, body ache and headache, partial loss of taste. Patient came into [facility] emergency center for evaluation. Patient has been afebrile, heart rate in the 60s, blood pressure 137/76, pulse ox 94% on 5 L nasal cannula. CBC was unremarkable, lymphocytes 0.7. INR 1, d- dimer 0.48. Lactic acid 1.2. Troponin negative. C-reactive protein 15.5. Pro BNP 205. Coronal virus PCR positive. Chest x-ray correlate for pneumonia. [facility] and consult with pulmonary medicine REVIEW OF SYSTEMS Constitutional: Reports fever, Reports chills, no night sweats. No weight change. Reports weakness, Reports fatigue Reports lethargy. No daytime sleepiness. EENT: No headache. No blurred vision or double vision, no loss of vision. No loss of Hearing, no ringing in the ears, no dizziness. No nasal drainage or congestion. No epistaxis. No sore throat. Lungs: Reports shortness of breath, Reports cough, Reports sputum production. No wheezing. Cardiovascular: No chest pain, no lower extremity edema. No palpitations. No paroxysmal nocturnal dyspnea. No orthopnea. No lightheadedness or dizziness. No syncopal episodes. Abdominal: No abdominal pain. No nausea, vomiting. Reports diarrhea. No constipation. No bloody or tarry stools. Reports loss of appetite. Genitourinary: No dysuria, increased frequency, urgency. No urinary retention. Musculoskeletal: Reports myalgias. No muscle weakness, no gait dysfunction, no frequent falls. No back pain. No neck pain. Integumentary: No wounds, no lesions. No rash or pruritus. No unusual bruising. No change in hair or nails. Neurologic: No aphasia. No facial droop. No change in mentation. No head injury. No headache. No paralysis. No paresthesia. Psychiatric: No depression. No anxiety. No mood swings. Endocrine: No abnormal blood sugars. No weight change. No excessive sweating or thirst. No cold intolerance. 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 FAMILY HISTORY Father at age 87 from aspiration pneumonia with history of coronary artery disease and dementia. Mother is alive with history of hypertension and CVA 2. Patient has 2 sisters and one at the age of 62 from COPD post-lung transplant and the other is 73 years old with diabetes and coronary artery disease. Patient has one son alive and well and 2 daughters alive and well. PHYSICAL EXAMINATION Gen: This is a 70-year-old female. Patient is seen on the [facility] floor, she is in isolation, noted frequent coughing. HEENT: Head is atraumatic, normocephalic. Pupils equal, round. Sclerae is anicteric. NECK: Supple. No JVD. No lymphadenopathy. No thyromegaly. LUNGS: Bilateral crackles, no wheezing. No intercostal retractions. HEART: First heart sound is depressed, second heart sound is normal, 2/6 systolic ejection murmur at the left sternal border, no S3, no S4. ABDOMEN: Soft. Bowel sounds are present. No masses. No tenderness. EXTREMITIES: No pedal edema. No calf tenderness. NEUROLOGICAL: Patient is awake, alert and oriented x3. Cranial nerves 2 through 12 are grossly intact. ASSESSMENT AND PLAN 1. Acute hypoxic respiratory failure secondary to acute COVID-19 pneumonia. Continue Decadron 6 mg IV daily, Lovenox 40 mg subcu daily, vitamin supplements, consult with pulmonary medicine. 2. History of paroxysmal atrial fibrillation not on anticoagulation. Continue flecainide 150 mg twice daily. 3. Vitamin B12 deficiency anemia, stable. 4. Vitamin D deficiency. 5. GI prophylaxis. Protonix. 6. DVT prophylaxis. Lovenox. CODE STATUS: Full code Patient will be admitted to the hospital for a minimum of 2 night stay. DISCHARGE PLAN Home. Impression and plan of care have been directed as dictated by the signing physician. Marcia Martines nurse practitioner acting as scribe for signing physician. Past Medical History Past Medical History: Atrial Fibrillation History of Any Multi-Drug Resistant Organisms: None Reported Past Surgical History: Appendectomy, Section, Hernia Repair, Hysterectomy, Tonsillectomy Past Anesthesia/Blood Transfusion Reactions: Postoperative Nausea & Vomiting (PONV) Past Psychological History: No Psychological Hx Reported Past Alcohol Use History: Rare - Past Family History Mother Family Medical History: No Reported History Father Family Medical History: Congestive Heart Failure (CHF), Diabetes Mellitus Medications and Allergies Home Medications Medication Instructions Recorded Confirmed Type Flecainide Acetate [Tambocor] 150 mg PO BID 07/17/18 08/26/21 History Cholecalciferol (Vitamin D3) 125 mcg PO DAILY 02/20/21 08/26/21 History [Vitamin D3 (5000 Iu)] lisinopriL [Zestril] 2.5 mg PO HS 08/26/21 08/26/21 History Allergies Allergy/AdvReac Type Severity Reaction Status Date / Time Beef Containing Products AdvReac SEVERE Verified 08/26/21 14:04 MIGRAINES levofloxacin [From Levaquin] AdvReac Nausea & Verified 08/26/21 14:04 Vomiting & Diarrhea Physical Exam Vitals: Vital Signs Temp Pulse Pulse Resp BP BP Pulse Ox 08/27/21 05:29 97.7 F 62 18 131/79 91 L 08/27/21 01:40 97.7 F 56 L 122/75 94 L 08/26/21 21:50 56 L 20 08/26/21 21:35 98.1 F 70 112/67 95 08/26/21 18:35 98.5 F 63 20 121/72 95 08/26/21 15:51 94 L 08/26/21 15:47 87 L 08/26/21 15:30 68 18 130/75 95 08/26/21 15:00 72 139/75 95 08/26/21 14:30 70 18 128/73 94 L 08/26/21 14:00 66 126/72 93 L 08/26/21 13:47 99.1 F 60 18 137/76 94 L 08/26/21 13:31 95 Intake and Output 08/26/21 08/27/21 08/27/21 22:59 06:59 14:59 Other: Voiding Method Bedside Commode # Voids 2 # Bowel Movements 0 Weight 86.183 kg Results CBC & Chem 7: 08/27/21 06:43 08/27/21 06:43 Labs: Abnormal Lab Results - Last 24 Hours (Table) 08/26/21 08/26/21 08/26/21 Range/Units 13:45 13:45 13:57 Lymphocytes # 0.7 L (1.0-4.8) k/uL Sodium 136 L (137-145) mmol/L Glucose 111 H (74-99) mg/dL Calcium 8.3 L (8.4-10.2) mg/dL C-Reactive Protein 15.5 H (<1.0) mg/dL Total Protein 5.8 L (6.3-8.2) g/dL Albumin 3.0 L (3.5-5.0) g/dL Coronavirus (PCR) Detected A (Not Detectd) Thrombosis Risk Factor Assmnt - Choose All That Apply Each Risk Factor Represents 2 Points: Age 61-74 years Other congenital or acquired thrombophilia - If yes, enter type in comment: No Thrombosis Risk Factor Assessment Total Risk Factor Score: 2 Thrombosis Risk Factor Assessment Level: Low Risk
[2021-08-28] MEDS: SODIUM CHLORIDE 0.9% 1,000 ML IV SCH ×2 (06:17→17:09)
[2021-08-28] MEDS: ACETAMINOPHEN TAB 325 MG TAB PO PRN (06:24)
[2021-08-28] MEDS: ONDANSETRON 4 MG/2 ML VIAL IVP PRN (06:26)
[2021-08-28] MEDS: CHOLECALCIFEROL 25 MCG (1000 IU) TABLET PO SCH (08:31)
[2021-08-28] MEDS: PANTOPRAZOLE 40 MG TABLET PO SCH (08:32)
[2021-08-28] MEDS: FLECAINIDE 50 MG TAB PO SCH ×2 (08:32→21:59)
[2021-08-28] MEDS: DEXAMETHASONE SOD PHOSPHATE 10 MG/ML 1 ML VIAL IV SCH (08:32)
[2021-08-28] MEDS: ASCORBIC ACID 500 MG TAB PO SCH (08:32)
[2021-08-28] MEDS: ZINC SULFATE 220 MG CAP PO SCH (08:32)
[2021-08-28] MEDS: ENOXAPARIN 40 MG/0.4 ML SYRINGE SQ SCH (08:33)
[2021-08-28] MEDS: CLOTRIMAZOLE/BETAMETH 1-0.05% LOTION 30 ML BTL TOPICAL SCH (08:33)
--- NOTE | 2021-08-28 08:50 | P.PN ---
Subjective Progress Note Date: 08/28/21 HISTORY OF PRESENT ILLNESS This is a 70-year-old female patient with past medical history of paroxysmal atrial fibrillation, vitamin B12 deficiency anemia, vitamin D deficiency. Whit mckeon states that her and her went to visit her cousin in [place] and after 1 day cousin woke up and was having symptoms had testing done for Covid which was positive. She and her drove home but she develops symptoms. She states she's had cough with phlegm production, some diarrhea, fever and chills, body ache and headache, partial loss of taste. Patient came into [facility] emergency center for evaluation. Patient has been afebrile, heart rate in the 60s, blood pressure 137/76, pulse ox 94% on 5 L nasal cannula. CBC was unremarkable, lymphocytes 0.7. INR 1, d- dimer 0.48. Lactic acid 1.2. Troponin negative. C-reactive protein 15.5. Pro BNP 205. Coronal virus PCR positive. Chest x-ray correlate for pneumonia. [facility] and consult with pulmonary medicine 08/28: Patient continues to have cough, shortness of breath especially with activity. She is noted to have a rash of both lower extremities for with Lotrisone cream added. Patient has been afebrile, heart rate 73, blood pressure 145/76, pulse ox 90-95% on 6 L nasal cannula. Patient has been seen and followed by pulmonary medicine. Repeat blood work ordered for tomorrow. REVIEW OF SYSTEMS Constitutional: Reports fever, Reports chills, no night sweats. No weight change. Reports weakness, Reports fatigue Reports lethargy. No daytime sleepiness. EENT: No headache. No loss of Hearing, no ringing in the ears, no dizziness. No nasal drainage or congestion. No epistaxis. No sore throat. Lungs: Reports shortness of breath, Reports cough, Reports sputum production. No wheezing. Cardiovascular: No chest pain, no lower extremity edema. No palpitations. No paroxysmal nocturnal dyspnea. No orthopnea. No lightheadedness or dizziness. No syncopal episodes. Abdominal: No abdominal pain. No nausea, vomiting. Reports diarrhea. No constipation. No bloody or tarry stools. Reports loss of appetite. Genitourinary: No dysuria, increased frequency, urgency. No urinary retention. Musculoskeletal: Reports myalgias. No muscle weakness, no gait dysfunction, no frequent falls. No back pain. No neck pain. Integumentary: No wounds, no lesions. No rash or pruritus. No unusual bruising. No change in hair or nails. Neurologic: No aphasia. No facial droop. No change in mentation. No head injury. No headache. No paralysis. No paresthesia. Psychiatric: No depression. No anxiety. Endocrine: No abnormal blood sugars. No weight change. No excessive sweating or thirst. No cold intolerance. PHYSICAL EXAMINATION Gen: This is a 70-year-old female. Patient is seen on the [facility], she is in isolation, noted frequent coughing. HEENT: Head is atraumatic, normocephalic. Pupils equal, round. Sclerae is anicteric. NECK: Supple. No JVD. No lymphadenopathy. No thyromegaly. LUNGS: Bilateral crackles, no wheezing. No intercostal retractions. O2 at 6 L nasal cannula HEART: First heart sound is depressed, second heart sound is normal, 2/6 systolic ejection murmur at the left sternal border, no S3, no S4. ABDOMEN: Soft. Bowel sounds are present. No masses. No tenderness. EXTREMITIES: No pedal edema. No calf tenderness. NEUROLOGICAL: Patient is awake, alert and oriented x3. Cranial nerves 2 through 12 are grossly intact. ASSESSMENT AND PLAN 1. Acute hypoxic respiratory failure secondary to acute COVID-19 pneumonia. Continue Decadron 6 mg IV daily, Lovenox 40 mg subcu daily, vitamin supplements, consult with pulmonary medicine appreciated. Repeat blood work including inflammatory markers for tomorrow. 2. History of paroxysmal atrial fibrillation not on anticoagulation. Continue flecainide 150 mg twice daily. 3. Vitamin B12 deficiency anemia, stable. 4. Vitamin D deficiency. 5. GI prophylaxis. Protonix. 6. DVT prophylaxis. Lovenox. CODE STATUS: Full code DISCHARGE PLAN Home. Impression and plan of care have been directed as dictated by the signing physician. Marcia Martines nurse practitioner acting as scribe for signing physician. Objective - Vital Signs Vital signs: Vital Signs Temp 98.6 F 08/28/21 01:09 Pulse 73 08/28/21 01:09 Resp 21 08/28/21 01:09 BP 145/76 08/28/21 01:09 Pulse Ox 90 L 08/28/21 01:09 Intake & Output 08/27/21 08/28/21 08/28/21 18:59 06:59 18:59 Other: Voiding Method Bedside Commode # Voids 4 # Bowel Movements 0 - Labs CBC & Chem 7: 08/27/21 06:43 08/27/21 06:43 Labs: Abnormal Lab Results - Last 24 Hours (Table) 08/27/21 08/27/21 Range/Units 06:43 06:43 MCV 97.3 H (80.0-97.0) fL MCH 32.2 H (27.0-32.0) pg Lymphocytes # 0.46 L (0.90-5.00) X 10*3/uL Eosinophils # 0 L (0.04-0.35) X 10*3/uL Carbon Dioxide 20 L (22-30) mmol/L Glucose 158 H (74-99) mg/dL
[2021-08-28] MEDS: ALBUTEROL HFA INHALER INHALATION PRN ×4 (09:13→20:29)
--- NOTE | 2021-08-28 12:17 | P.PN ---
Subjective Progress Note Date: 08/28/21 Principal diagnosis: Cough, fever, diarrhea, nausea and vomiting, hypoxia and dyspnea 70-year-old white female patient of Dr. Leo, with past medical history of paroxysmal atrial fibrillation with previous history of ablation, moderate obstructive sleep apnea with AHI score of 11 not on CPAP therapy and hypertension, presented with a 12 day history of COVID-19 infection symptoms. Patient recently visited her cousin in [place] who tested positive for COVID-19, patient is not vaccinated, she reports cough, fever, exhaustion, nausea vomiting and diarrhea. She denied any black or bloody stools, no abdominal pain, no chest pain, no hemoptysis. And was tested for COVID-19 and was found to be positive. Chest x-ray demonstrated bilateral opacities, patient was desaturating to 87% on room air, she was placed on 4 L of oxygen in the emergency department, which is currently up to 6 L, her pulse ox right now is around 95%. She was started on Decadron in the emergency department. Outside the window for Remdesivir. Admission blood work has been reviewed showing a white blood cell, 7.9, hemoglobin is 13.1, lymphocyte count is 0.7, d-dimer is 0.48, her electrolytes and renal profile are unremarkable, troponin is less than 0.012, CRP was 15.5, proBNP was 205. On 08/28/2021 patient seen in follow-up on medical surgical floor. She is currently on 6 L of oxygen her pulse ox is 90-95%, she continues on daily dose of Decadron 6 mg, she was outside of the window for Remdesivir, she remains on COVID-19 vitamins, Lovenox 40 mg daily. No new labs, follow-up d-dimer, and inflammatory markers are pending for today. Continues on IV hydration with 0.9 normal saline at a rate of 100 ML per hour. She still has a cough, and exertional dyspnea, but no acute distress. Objective - Vital Signs Vital signs: Vital Signs Temp 98.6 F 08/28/21 01:09 Pulse 73 08/28/21 01:09 Resp 21 08/28/21 01:09 BP 145/76 08/28/21 01:09 Pulse Ox 90 L 08/28/21 01:09 Intake & Output 08/27/21 08/28/21 08/28/21 18:59 06:59 18:59 Other: Voiding Method Bedside Commode # Voids 4 # Bowel Movements 0 0 - Exam GENERAL EXAM: Alert, very pleasant, 70-year-old white female, currently on 6 L of oxygen a pulse ox of 95% comfortable in no apparent distress. HEAD: Normocephalic/atraumatic. EYES: Normal reaction of pupils, equal size. Conjunctiva pink, sclera white. NOSE: Clear with pink turbinates. THROAT: No erythema or exudates. NECK: No masses, no JVD, no thyroid enlargement, no adenopathy. CHEST: No chest wall deformity. Symmetrical expansion. LUNGS: Equal air entry with diffuse bilateral crackles CVS: Regular rate and rhythm, normal S1 and S2, no gallops, no murmurs, no rubs ABDOMEN: Soft, nontender. No hepatosplenomegaly, normal bowel sounds, no guarding or rigidity. EXTREMITIES: No clubbing, no edema, no cyanosis, 2+ pulses and upper and lower extremities. MUSCULOSKELETAL: Muscle strength and tone normal. SPINE: No scoliosis or deformity SKIN: No rashes CENTRAL NERVOUS SYSTEM: Alert and oriented -3. No focal deficits, tone is normal in all 4 extremities. PSYCHIATRIC: Alert and oriented -3. Appropriate affect. Intact judgment and insight. - Labs CBC & Chem 7: 08/27/21 06:43 08/27/21 06:43 Assessment and Plan Plan: Assessment: #1. Acute hypoxic respiratory failure secondary to acute COVID-19 pneumonia, with onset of symptoms 12 days ago, patient outside the window for Remdesivir. Patient is not vaccinated. Currently on Decadron, and prophylactic anticoagulation #2. Increased inflammatory markers related to the above #3. History of hypertension #4. History of obstructive sleep apnea with AHI score of 11, on CPAP therapy #5. History of paroxysmal atrial fibrillation with previous history of ablations, currently on flecainide, not on any chronic anticoagulation. Currently in sinus mechanism Plan: Continue current medical treatment Continue current dose Decadron Continue prophylactic Lovenox Continue vitamins Home medications have been reordered We will continue following patient's clinical course and make further recommendations Continue monitoring for any worsening dyspnea and hypoxia We'll continue monitoring daily d-dimer's, and prophylactic dose Lovenox for now. Follow-up chest x-ray tomorrow I performed a history & physical examination of the patient and discussed their management with my nurse practitioner, Padmini Rawls. I reviewed the nurse practitioner's note and agree with the documented findings and plan of care. Lung sounds are positive for diminished breath sounds throughout the lung zarate. The findings and the impression was discussed with the patient. I attest to the documentation by the nurse practitioner. Time with Patient: Less than 30
[2021-08-29] MEDS: CLOTRIMAZOLE/BETAMETH 1-0.05% LOTION 30 ML BTL TOPICAL SCH ×3 (00:09→21:56)
[2021-08-29] MEDS: ONDANSETRON 4 MG/2 ML VIAL IVP PRN (06:13)
[2021-08-29] MEDS: SODIUM CHLORIDE 0.9% 1,000 ML IV SCH (06:35)
[2021-08-29 07:11] LABS: ALT 21 U/L (4-34); AST 20 U/L (14-36); African American GFR (CKD) >90 (>60 ml/min/1.73 sqM); Albumin 2.9 g/dL (3.5-5.0); Albumin/Globulin Ratio 1.1; Alkaline Phosphatase 96 U/L (38-126); Anion Gap 6 mmol/L; Blood Urea Nitrogen 13 mg/dL (7-17); C Reactive Protein 2.4 mg/dL (<1.0); Carbon Dioxide 26 mmol/L (22-30); Chloride 108 mmol/L (98-107); Globulin 2.7 g/dL; Glucose 99 mg/dL (74-99); LDH 627 U/L (313-618); Non-African American GFR(CKD) >90 (>60 ml/min/1.73 sqM); Potassium 4.5 mmol/L (3.5-5.1); Sodium 140 mmol/L (137-145); Total Bilirubin 0.6 mg/dL (0.2-1.3); Total Protein 5.6 g/dL (6.3-8.2)
[2021-08-29] MEDS: ALBUTEROL HFA INHALER INHALATION PRN ×4 (08:11→19:53)
--- NOTE | 2021-08-29 08:26 | XR ---
EXAMINATION TYPE: XR chest 1V portable DATE OF EXAM: 08/29/2021 COMPARISON: Chest x-ray 08/26/2021 HISTORY: Covid 19 pneumonia TECHNIQUE: Single frontal view of the chest is obtained. FINDINGS: Findings are similar to prior exam, there are peripheral areas of airspace disease. There is no pneumothorax or pleural effusion. Cardiomediastinal silhouette is unchanged. There are overlyin g artifacts. There is evidence of old granulomatous disease. IMPRESSION: Findings consistent with patient's history
[2021-08-29] MEDS: SENNOSIDES-DOCUSATE SODIUM 1 EACH TAB PO SCH (08:55)
[2021-08-29] MEDS: ASCORBIC ACID 500 MG TAB PO SCH ×2 (08:55→08:57)
[2021-08-29] MEDS: ZINC SULFATE 220 MG CAP PO SCH (08:57)
[2021-08-29] MEDS: CHOLECALCIFEROL 25 MCG (1000 IU) TABLET PO SCH (08:57)
[2021-08-29] MEDS: PANTOPRAZOLE 40 MG TABLET PO SCH (08:57)
[2021-08-29] MEDS: DEXAMETHASONE SOD PHOSPHATE 10 MG/ML 1 ML VIAL IV SCH (08:57)
[2021-08-29] MEDS: FLECAINIDE 50 MG TAB PO SCH ×2 (08:58→21:56)
[2021-08-29] MEDS: ENOXAPARIN 40 MG/0.4 ML SYRINGE SQ SCH (08:58)
--- NOTE | 2021-08-29 09:11 | P.PN ---
Subjective Progress Note Date: 08/29/21 HISTORY OF PRESENT ILLNESS This is a 70-year-old female patient with past medical history of paroxysmal atrial fibrillation, vitamin B12 deficiency anemia, vitamin D deficiency. Whit mckeon states that her and her went to visit her cousin in [place] and after 1 day cousin woke up and was having symptoms had testing done for Covid which was positive. She and her drove home but she develops symptoms. She states she's had cough with phlegm production, some diarrhea, fever and chills, body ache and headache, partial loss of taste. Patient came into [facility] emergency center for evaluation. Patient has been afebrile, heart rate in the 60s, blood pressure 137/76, pulse ox 94% on 5 L nasal cannula. CBC was unremarkable, lymphocytes 0.7. INR 1, d- dimer 0.48. Lactic acid 1.2. Troponin negative. C-reactive protein 15.5. Pro BNP 205. Coronal virus PCR positive. Chest x-ray correlate for pneumonia. Patient admitted to the [facility] floor and consult with pulmonary medicine 08/28: Patient continues to have cough, shortness of breath especially with activity. She is noted to have a rash of both lower extremities for with Lotrisone cream added. Patient has been afebrile, heart rate 73, blood pressure 145/76, pulse ox 90-95% on 6 L nasal cannula. Patient has been seen and followed by pulmonary medicine. Repeat blood work ordered for tomorrow. 08/29: Patient is found today sitting on the edge of the bed with breakfast. She states she feels a little bit better and breathing is a little easier today. She continues to have cough mostly nonproductive. She states she ate well yesterday and is complaining of constipation for with Senokot added. Lotrisone cream was started this morning. Patient has been afebrile, heart rate in the 50s and 60s, blood pressure 120/73, pulse ox 92-96% on 5 L. secured entrance monitor is sinus rhythm. Telemetry will be discontinued. Oxygen will be of weaned down to 4 L this morning. Repeat blood work reveals d-dimer 0.96, LDH 627, C-reactive protein 2.4. REVIEW OF SYSTEMS Constitutional: Reports fever, Reports chills, no night sweats. No weight change. Reports weakness, Reports fatigue Reports lethargy. No daytime sleepiness. EENT: No headache. No loss of Hearing, no ringing in the ears, no dizziness. No nasal drainage or congestion. No epistaxis. No sore throat. Lungs: Reports shortness of breath, Reports cough, Reports animal sputum production. No wheezing. Cardiovascular: No chest pain, no lower extremity edema. No palpitations. No paroxysmal nocturnal dyspnea. No orthopnea. No lightheadedness or dizziness. No syncopal episodes. Abdominal: No abdominal pain. No nausea, vomiting. Reports diarrhea. No constipation. No bloody or tarry stools. Reports loss of appetite. Genitourinary: No dysuria, increased frequency, urgency. No urinary retention. Musculoskeletal: Reports myalgias. No muscle weakness, no gait dysfunction, no frequent falls. No back pain. No neck pain. Integumentary: No wounds, no lesions. No rash or pruritus. No unusual bruising. No change in hair or nails. Neurologic: No aphasia. No facial droop. No change in mentation. No head injury. No headache. No paralysis. No paresthesia. Psychiatric: No depression. No anxiety. Endocrine: No abnormal blood sugars. No weight change. PHYSICAL EXAMINATION Gen: This is a 70-year-old female. Patient is seen on the [facility], she is in isolation, noted frequent coughing. She was sitting up in the edge of the bed and appears to be comfortable at rest. HEENT: Head is atraumatic, normocephalic. Pupils equal, round. Sclerae is anicteric. NECK: Supple. No JVD. No lymphadenopathy. No thyromegaly. LUNGS: Bilateral crackles, no wheezing. No intercostal retractions. O2 at 6 L nasal cannula HEART: First heart sound is depressed, second heart sound is normal, 2/6 systolic ejection murmur at the left sternal border, no S3, no S4. ABDOMEN: Soft. Bowel sounds are present. No masses. No tenderness. EXTREMITIES: No pedal edema. No calf tenderness. NEUROLOGICAL: Patient is awake, alert and oriented x3. Cranial nerves 2 through 12 are grossly intact. ASSESSMENT AND PLAN 1. Acute hypoxic respiratory failure secondary to acute COVID-19 pneumonia. Continue Decadron 6 mg IV daily, Lovenox 40 mg subcu daily, vitamin supplements, consult with pulmonary medicine appreciated. Repeat blood work including inflammatory markers as above, IV fluids been discontinued. 2. History of paroxysmal atrial fibrillation not on anticoagulation. Continue flecainide 150 mg twice daily. 3. Vitamin B12 deficiency anemia, stable. 4. Vitamin D deficiency. 5. GI prophylaxis. Protonix. 6. DVT prophylaxis. Lovenox. CODE STATUS: Full code DISCHARGE PLAN Home. Impression and plan of care have been directed as dictated by the signing physician. Marcia Martines nurse practitioner acting as scribe for signing physician. Objective - Vital Signs Vital signs: Vital Signs Temp 97.7 F 08/29/21 06:05 Pulse 50 L 08/29/21 06:05 Resp 18 08/29/21 06:05 BP 120/73 08/29/21 06:05 Pulse Ox 92 L 08/29/21 06:05 Intake & Output 08/28/21 08/29/21 08/29/21 18:59 06:59 18:59 Other: Voiding Method Toilet # Voids 3 2 # Bowel Movements 0 - Labs CBC & Chem 7: 08/27/21 06:43 08/29/21 05:56 Labs: Abnormal Lab Results - Last 24 Hours (Table) 08/29/21 08/29/21 Range/Units 05:56 05:56 D-Dimer 0.96 H (<0.60) mg/L FEU Chloride 108 H (98-107) mmol/L Lactate Dehydrogenase 627 H (313-618) U/L C-Reactive Protein 2.4 H (<1.0) mg/dL Total Protein 5.6 L (6.3-8.2) g/dL Albumin 2.9 L (3.5-5.0) g/dL
[2021-08-29 10:35] LABS: Basophils # (A) 0.03 X 10*3/uL (0.00-0.10); Basophils % (A) 0.3 %; Eosinophils # (A) 0.07 X 10*3/uL (0.04-0.35); Eosinophils % (A) 0.6 %; HCT 37.3 % (37.2-46.3); Lymphocytes # (A) 1.48 X 10*3/uL (0.90-5.00); Lymphocytes % (A) 12.8 %; MCH 33.2 pg (27.0-32.0); MCHC 34.9 g/dL (32.0-37.0); MCV 95.4 fL (80.0-97.0); Mean Platelet Volume 8.6 fL (9.5-12.2); Monocytes # (A) 0.85 X 10*3/uL (0.20-1.00); Monocytes % (A) 7.3 %; Neutrophils # (A) 9.07 X 10*3/uL (1.80-7.70); Neutrophils % (A) 78.2 %; Platelet Count 488 X 10*3/uL (140-440); RBC 3.91 X 10*6/uL (4.10-5.20); RDW 12.2 % (11.5-14.5); WBC 11.59 X 10*3/uL (4.50-10.00)
--- NOTE | 2021-08-29 13:32 | P.PN ---
Subjective Progress Note Date: 08/29/21 Principal diagnosis: Cough, fever, diarrhea, nausea and vomiting, hypoxia and dyspnea 70-year-old white female patient of Dr. Leo, with past medical history of paroxysmal atrial fibrillation with previous history of ablation, moderate obstructive sleep apnea with AHI score of 11 not on CPAP therapy and hypertension, presented with a 12 day history of COVID-19 infection symptoms. Patient recently visited her cousin in [place] who tested positive for COVID-19, patient is not vaccinated, she reports cough, fever, exhaustion, nausea vomiting and diarrhea. She denied any black or bloody stools, no abdominal pain, no chest pain, no hemoptysis. And was tested for COVID-19 and was found to be positive. Chest x-ray demonstrated bilateral opacities, patient was desaturating to 87% on room air, she was placed on 4 L of oxygen in the emergency department, which is currently up to 6 L, her pulse ox right now is around 95%. She was started on Decadron in the emergency department. Outside the window for Remdesivir. Admission blood work has been reviewed showing a white blood cell, 7.9, hemoglobin is 13.1, lymphocyte count is 0.7, d-dimer is 0.48, her electrolytes and renal profile are unremarkable, troponin is less than 0.012, CRP was 15.5, proBNP was 205. On 08/28/2021 patient seen in follow-up on medical surgical floor. She is currently on 6 L of oxygen her pulse ox is 90-95%, she continues on daily dose of Decadron 6 mg, she was outside of the window for Remdesivir, she remains on COVID-19 vitamins, Lovenox 40 mg daily. No new labs, follow-up d-dimer, and inflammatory markers are pending for today. Continues on IV hydration with 0.9 normal saline at a rate of 100 ML per hour. She still has a cough, and exertional dyspnea, but no acute distress. On today's evaluation on 08/29/2021 patient is seen in follow-up on medical surgical floor, she states that her breathing is improving, she was able to get up and go in the shower today, tolerating activity fairly well, on 5 L of oxygen and her pulse ox was 93-97%, her FiO2 is currently cut back to 4 L. She is afebrile, hemodynamically she is been stable, today's chest x-ray still shows bilateral infiltrates, without significant change, she continues on Decadron 6 mg daily, multivitamins, and Lovenox 40 mg. Her d-dimer today is 0.96, white count is 9.5, hemoglobin is 13, electrolytes and renal profile were fairly unremarkable, LDH was 627, CRP is improved and is down to 2.4. Objective - Vital Signs Vital signs: Vital Signs Temp 97.7 F 08/29/21 10:00 Pulse 52 L 08/29/21 10:00 Resp 18 08/29/21 10:00 BP 111/73 08/29/21 10:00 Pulse Ox 97 08/29/21 10:00 Intake & Output 08/28/21 08/29/21 08/29/21 18:59 06:59 18:59 Other: Voiding Method Toilet # Voids 3 2 # Bowel Movements 0 - Exam GENERAL EXAM: Alert, very pleasant, 70-year-old white female, currently on 4 L of oxygen a pulse ox of 95% comfortable in no apparent distress. HEAD: Normocephalic/atraumatic. EYES: Normal reaction of pupils, equal size. Conjunctiva pink, sclera white. NOSE: Clear with pink turbinates. THROAT: No erythema or exudates. NECK: No masses, no JVD, no thyroid enlargement, no adenopathy. CHEST: No chest wall deformity. Symmetrical expansion. LUNGS: Equal air entry with diffuse bilateral crackles CVS: Regular rate and rhythm, normal S1 and S2, no gallops, no murmurs, no rubs ABDOMEN: Soft, nontender. No hepatosplenomegaly, normal bowel sounds, no guardi ng or rigidity. EXTREMITIES: No clubbing, no edema, no cyanosis, 2+ pulses and upper and lower extremities. MUSCULOSKELETAL: Muscle strength and tone normal. SPINE: No scoliosis or deformity SKIN: No rashes CENTRAL NERVOUS SYSTEM: Alert and oriented -3. No focal deficits, tone is normal in all 4 extremities. PSYCHIATRIC: Alert and oriented -3. Appropriate affect. Intact judgment and insight. - Labs CBC & Chem 7: 08/29/21 05:56 08/29/21 05:56 Labs: Abnormal Lab Results - Last 24 Hours (Table) 08/29/21 08/29/21 08/29/21 Range/Units 05:56 05:56 05:56 WBC 11.59 H (4.50-10.00) X 10*3/uL RBC 3.91 L (4.10-5.20) X 10*6/uL MCH 33.2 H (27.0-32.0) pg Plt Count 488 H (140-440) X 10*3/uL MPV 8.6 L (9.5-12.2) fL Immature Gran # 0.09 H (0.00-0.04) X 10*3/uL Neutrophils # 9.07 H (1.80-7.70) X 10*3/uL D-Dimer 0.96 H (<0.60) mg/L FEU Chloride 108 H (98-107) mmol/L Lactate Dehydrogenase 627 H (313-618) U/L C-Reactive Protein 2.4 H (<1.0) mg/dL Total Protein 5.6 L (6.3-8.2) g/dL Albumin 2.9 L (3.5-5.0) g/dL Assessment and Plan Plan: Assessment: #1. Acute hypoxic respiratory failure secondary to acute COVID-19 pneumonia, with onset of symptoms 12 days ago, patient outside the window for Remdesivir. Patient is not vaccinated. Currently on Decadron, and prophylactic anticoagu lation #2. Increased inflammatory markers related to the above #3. History of hypertension #4. History of obstructive sleep apnea with AHI score of 11, on CPAP therapy #5. History of paroxysmal atrial fibrillation with previous history of ablations, currently on flecainide, not on any chronic anticoagulation. Currently in sinus mechanism Plan: Continue current medical treatment Continue current dose Decadron Continue prophylactic Lovenox Continue weaning Fio2, currently down to 4 l Continue vitamins If remains stable and requiring oxygen less than 5 L may consider discharge home tomorrow. I performed a history & physical examination of the patient and discussed their management with my nurse practitioner, Padmini Rawls. I reviewed the nurse practitioner's note and agree with the documented findings and plan of care. Lung sounds are positive for diminished breath sounds throughout the lung zarate. The findings and the impression was discussed with the patient. I attest to the documentation by the nurse practitioner. Time with Patient: Less than 30
[2021-08-30 06:31] VITALS: PULSE 56
[2021-08-30] MEDS: DEXAMETHASONE SOD PHOSPHATE 10 MG/ML 1 ML VIAL IV SCH (09:01)
[2021-08-30] MEDS: ZINC SULFATE 220 MG CAP PO SCH (09:01)
[2021-08-30] MEDS: ENOXAPARIN 40 MG/0.4 ML SYRINGE SQ SCH (09:02)
[2021-08-30] MEDS: FLECAINIDE 50 MG TAB PO SCH (09:02)
[2021-08-30] MEDS: PANTOPRAZOLE 40 MG TABLET PO SCH (09:02)
[2021-08-30] MEDS: ASCORBIC ACID 500 MG TAB PO SCH (09:02)
[2021-08-30] MEDS: CHOLECALCIFEROL 25 MCG (1000 IU) TABLET PO SCH (09:02)
[2021-08-30] MEDS: SENNOSIDES-DOCUSATE SODIUM 1 EACH TAB PO SCH (09:03)
[2021-08-30] MEDS: CLOTRIMAZOLE/BETAMETH 1-0.05% LOTION 30 ML BTL TOPICAL SCH (09:04)
[2021-08-30] MEDS: ALBUTEROL HFA INHALER INHALATION PRN ×2 (10:07→13:08)
[2021-08-30 10:30] VITALS: BP 109/69; RESP 17; TEMP 98.2
--- NOTE | 2021-08-30 12:54 | P.DS ---
Providers Date of admission: 08/26/21 16:32 Expected date of discharge: 08/30/21 Attending physician: Daisy Leo Consults: 08/26/21 16:31 Consult Physician Urgent Consulting Provider: Rodrick Vincent Consult Reason/Comments: acute hypoxic resp failure, acute covid pna Do you want consulting provider notified?: Yes Primary care physician: Daisy Leo [facility] Course: HISTORY OF PRESENT ILLNESS This is a 70-year-old female patient with past medical history of paroxysmal atrial fibrillation, vitamin B12 deficiency anemia, vitamin D deficiency. Patient states that her and her went to visit her cousin in [place] and after 1 day cousin woke up and was having symptoms had testing done for Covid which was positive. She and her drove home but she develops symptoms. She states she's had cough with phlegm production, some diarrhea, fever and chills, body ache and headache, partial loss of taste. Patient came into [facility] emergency center for evaluation. Patient has been afebrile, heart rate in the 60s, blood pressure 137/76, pulse ox 94% on 5 L nasal cannula. CBC was unremarkable, lymphocytes 0.7. INR 1, d-dimer 0.48. Lactic acid 1.2. Troponin negative. C-reactive protein 15.5. Pro BNP 205. Coronal virus PCR positive. Chest x-ray correlate for pneumonia. Patient admitted to the [facility] floor and consult with pulmonary medicine 08/28: Patient continues to have cough, shortness of breath especially with activity. She is noted to have a rash of both lower extremities for with Lotrisone cream added. Patient has been afebrile, heart rate 73, blood pressure 145/76, pulse ox 90-95% on 6 L nasal cannula. Patient has been seen and followed by pulmonary medicine. Repeat blood work ordered for tomorrow. 08/29: Patient is found today sitting on the edge of the bed with breakfast. She states she feels a little bit better and breathing is a little easier today. She continues to have cough mostly nonproductive. She states she ate well yesterday and is complaining of constipation for with Senokot added. Lotrisone cream was started this morning. Patient has been afebrile, heart rate in the 50 s and 60s, blood pressure 120/73, pulse ox 92-96% on 5 L. 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 Telemetry will be discontinued. Oxygen will be of weaned down to 4 L this morning. Repeat blood work reveals d-dimer 0.96, LDH 627, C-reactive protein 2.4. 08/30: Patient is currently down to 3 L nasal cannula with pulse ox of 96%, afebrile, heart rate 56, blood pressure 149/82. Recent status appears to be stable. Patient does qualify for home oxygen therapy and corrections caseworker Jude made arrangements. Patient has been cleared for discharge by Dr. Nelson and patient will be discharged home in stable condition. ASSESSMENT AND PLAN 1. Acute hypoxic respiratory failure secondary to acute COVID-19 pneumonia. 2. History of paroxysmal atrial fibrillation not on anticoagulation. 3. Vitamin B12 deficiency anemia, stable. 4. Vitamin D deficiency. 5. Chronic hypoxic respiratory failure requiring home oxygen therapy DISCHARGE PLAN Home. Impression and plan of care have been directed as dictated by the signing physician. Marcia Martines nurse practitioner acting as scribe for signing physician. Patient Condition at Discharge: Stable Plan - Discharge Summary Discharge Rx Participant: No New Discharge Prescriptions: New Dexamethasone [Decadron] 6 mg PO DAILY 7 Days #7 tablet Albuterol Inhaler [Ventolin Hfa Inhaler] 2 puff INHALATION RT-QID PRN 30 Days #1 unit PRN Reason: Dyspnea Clotrimazole/Betameth Lotion [Lotrisone] 1 applic TOPICAL BID ml Zinc Sulfate [Orazinc] 220 mg PO DAILY cap Sennosides-Docusate Sodium [Senokot-S] 2 each PO DAILY tab Ascorbic Acid [Vitamin C] 1,000 mg PO DAILY tab Continue Flecainide Acetate [Tambocor] 150 mg PO BID lisinopriL [Zestril] 2.5 mg PO HS Cholecalciferol (Vitamin D3) [Vitamin D3 (5000 Iu)] 125 mcg PO DAILY Discharge Medication List Flecainide Acetate [Tambocor] 150 mg PO BID 07/17/18 [History] Cholecalciferol (Vitamin D3) [Vitamin D3 (5000 Iu)] 125 mcg PO DAILY 02/20/21 [History] lisinopriL [Zestril] 2.5 mg PO HS 08/26/21 [History] Albuterol Inhaler [Ventolin Hfa Inhaler] 2 puff INHALATION RT-QID PRN 30 Days #1 unit 08/30/21 [Rx] Ascorbic Acid [Vitamin C] 1,000 mg PO DAILY tab 08/30/21 [Rx] Clotrimazole/Betameth Lotion [Lotrisone] 1 applic TOPICAL BID ml 08/30/21 [Rx] Dexamethasone [Decadron] 6 mg PO DAILY 7 Days #7 tablet 08/30/21 [Rx] Sennosides-Docusate Sodium [Senokot-S] 2 each PO DAILY tab 08/30/21 [Rx] Zinc Sulfate [Orazinc] 220 mg PO DAILY cap 08/30/21 [Rx] Follow up Appointment(s)/Referral(s): Rodrick Vincent MD [STAFF PHYSICIAN] - 09/26/21 1:00 pm Daisy Leo MD [Primary Care Provider] - 1 Week (Office not answering Please call to schedule appointment ) [facility] [NON-STAFF] - As Needed (oxygen ) Discharge Disposition: HOME SELF-CARE
--- NOTE | 2021-08-30 13:18 | P.PN ---
Subjective Progress Note Date: 08/30/21 Principal diagnosis: Cough, fever, diarrhea, nausea and vomiting, hypoxia and dyspnea 70-year-old white female patient of Dr. Leo, with past medical history of paroxysmal atrial fibrillation with previous history of ablation, moderate obstructive sleep apnea with AHI score of 11 not on CPAP therapy and hypertension, presented with a 12 day history of COVID-19 infection symptoms. Patient recently visited her cousin in [place] who tested positive for COVID-19, patient is not vaccinated, she reports cough, fever, exhaustion, nausea vomiting and diarrhea. She denied any black or bloody stools, no abdominal pain, no chest pain, no hemoptysis. And was tested for COVID-19 and was found to be positive. Chest x-ray demonstrated bilateral opacities, patient was desaturating to 87% on room air, she was placed on 4 L of oxygen in the emergency department, which is currently up to 6 L, her pulse ox right now is around 95%. She was started on Decadron in the emergency department. Outside the window for Remdesivir. Admission blood work has been reviewed showing a white blood cell, 7.9, hemoglobin is 13.1, lymphocyte count is 0.7, d-dimer is 0.48, her electrolytes and renal profile are unremarkable, troponin is less than 0.012, CRP was 15.5, proBNP was 205. On 08/28/2021 patient seen in follow-up on medical surgical floor. She is currently on 6 L of oxygen her pulse ox is 90-95%, she continues on daily dose of Decadron 6 mg, she was outside of the window for Remdesivir, she remains on COVID-19 vitamins, Lovenox 40 mg daily. No new labs, follow-up d-dimer, and inflammatory markers are pending for today. Continues on IV hydration with 0.9 normal saline at a rate of 100 ML per hour. She still has a cough, and exertional dyspnea, but no acute distress. On today's evaluation on 08/29/2021 patient is seen in follow-up on medical surgical floor, she states that her breathing is improving, she was able to get up and go in the shower today, tolerating activity fairly well, on 5 L of oxygen and her pulse ox was 93-97%, her FiO2 is currently cut back to 4 L. She is afebrile, hemodynamically she is been stable, today's chest x-ray still shows bilateral infiltrates, without significant change, she continues on Decadron 6 mg daily, multivitamins, and Lovenox 40 mg. Her d-dimer today is 0.96, white count is 9.5, hemoglobin is 13, electrolytes and renal profile were fairly unremarkable, LDH was 627, CRP is improved and is down to 2.4. On the 08/30/2021 patient seen in follow-up on medical surgical floor. She is awake and alert, in no acute distress, she is still on 3 L of oxygen, denies any worsening dyspnea, overall she states she is feeling much better, breathing easier, still has a nonproductive cough, no complaints of chest pain. No fever or chills, vital signs have been stable. Yesterday's chest x-ray showed bilateral infiltrates without significant change from previous chest x-ray. Patient continues on Decadron 6 mg daily, she is on prophylactic Lovenox, and COVID-19 vitamins. No new labs today. Her most recent d-dimer was 0.96, her LDH was 627 on yesterday's labs, his CRP was down to 2.4. Pro-calcitonin level was negative at 0.07. Overall she states she is able to ambulate to the bathroom, yesterday she was able to take a shower. She is hoping to be able to go home today. Objective - Vital Signs Vital signs: Vital Signs Temp 98.2 F 08/30/21 10:00 Pulse 56 L 08/30/21 10:00 Resp 17 08/30/21 10:00 BP 109/69 08/30/21 10:00 Pulse Ox 94 L 08/30/21 10:09 Intake & Output 08/29/21 08/30/21 08/30/21 18:59 06:59 18:59 Intake Total 500 Balance 500 Intake: Oral 500 Other: # Voids 3 - Exam GENERAL EXAM: Alert, very pleasant, 70-year-old white female, currently on 4 L of oxygen a pulse ox of 95% comfortable in no apparent distress. HEAD: Normocephalic/atraumatic. EYES: Normal reaction of pupils, equal size. Conjunctiva pink, sclera white. NOSE: Clear with pink turbinates. THROAT: No erythema or exudates. NECK: No masses, no JVD, no thyroid enlargement, no adenopathy. CHEST: No chest wall deformity. Symmetrical expansion. LUNGS: Equal air entry with diffuse bilateral crackles CVS: Regular rate and rhythm, normal S1 and S2, no gallops, no murmurs, no rubs ABDOMEN: Soft, nontender. No hepatosplenomegaly, normal bowel sounds, no guarding or rigidity. EXTREMITIES: No clubbing, no edema, no cyanosis, 2+ pulses and upper and lower extremities. MUSCULOSKELETAL: Muscle strength and tone normal. SPINE: No scoliosis or deformity SKIN: No rashes CENTRAL NERVOUS SYSTEM: Alert and oriented -3. No focal deficits, tone is normal in all 4 extremities. PSYCHIATRIC: Alert and oriented -3. Appropriate affect. Intact judgment and insight. - Labs CBC & Chem 7: 08/29/21 05:56 08/29/21 05:56 Assessment and Plan Plan: Assessment: #1. Acute hypoxic respiratory failure secondary to acute COVID-19 pneumonia, with onset of symptoms 12 days ago, patient outside the window for Remdesivir. Patient is not vaccinated. Currently on Decadron, and prophylactic anticoagulation #2. Increased inflammatory markers related to the above #3. History of hypertension #4. History of obstructive sleep apnea with AHI score of 11, on CPAP therapy #5. History of paroxysmal atrial fibrillation with previous history of ablations, currently on flecainide, not on any chronic anticoagulation. Currently in sinus mechanism Plan: Patient has remained stable, Vital signs are stable FiO2 down to 3 L of oxygen We will obtain home oxygen assessment She will likely qualify for home oxygen she can complete a seven-day course of Decadron, Ventolin rescue inhaler, and COVID-19 vitamins From pulmonary perspective she stable for discharge home today Outpatient follow-up with Dr. Vincent in the office in 2-3 weeks I performed a history & physical examination of the patient and discussed their management with my nurse practitioner, Padmini Rawls. I reviewed the nurse practitioner's note and agree with the documented findings and plan of care. Lung sounds are positive for diminished breath sounds throughout the lung zarate. The findings and the impression was discussed with the patient. I attest to the documentation by the nurse practitioner. Time with Patient: Less than 30
== END 2021-08-30 15:41 | disposition home or self-care (01) | DRG 177 ==
LOC: EC 13:26 → 4SSUR 16:32
PROVIDERS: ADMIT Internal Medicine; ATTEND Internal Medicine
PROC: 3E0333Z Introduction of Anti-inflammatory into Peripheral Vein, Percutaneous Approach (ICD-10-PCS; principal; 2021-08-26)
DX: U07.1 COVID-19 (principal); J12.82 Pneumonia due to coronavirus disease 2019; J96.01 Acute respiratory failure with hypoxia; D51.9 Vitamin B12 deficiency anemia, unspecified; E55.9 Vitamin D deficiency, unspecified; I10 Essential (primary) hypertension; I48.0 Paroxysmal atrial fibrillation; K59.00 Constipation, unspecified; Z79.899 Other long term (current) drug therapy; Z82.3 Family history of stroke; Z82.49 Family history of ischemic heart disease and other diseases of the circulatory system; Z82.5 Family history of asthma and other chronic lower respiratory diseases; Z83.3 Family history of diabetes mellitus; Z90.710 Acquired absence of both cervix and uterus; G47.33 Obstructive sleep apnea (adult) (pediatric)
CPT/HCPCS: 36415; 71045; 80048; 80053; 83605; 83615; 83735; 83880; 84145; 84484; 85025; 85379; 85610; 85730; 86140; 87635; 93005; 94640; 94760; 99285

== ENCOUNTER → 2021-11-06 | Outpatient (CLI) | payer MEDICARE, BC ==
--- NOTE | 2021-11-06 14:19 | US ---
EXAMINATION TYPE: US kidneys/renal and bladder DATE OF EXAM: 11/06/2021 COMPARISON: CT 02/19/2021 CLINICAL HISTORY: R31.0 gross hematuria. Gross hematuria 1 week ago for a day EXAM MEASUREMENTS: Right Kidney: 9.9 x 5.5 x4.6 cm Left Kidney: 10.5 x 5.6 x 5.8 cm Right Kidney: No hydronephrosis or masses seen Left Kidney: No hydronephrosis or masses seen, suspect there is a dromedary hump present at the midpo le level Bladder: wnl Bilateral Jets seen: Yes There is no evidence for hydronephrosis at this point in time. Cortical medullary differentiation is maintained. No nephrolithiasis is seen. No masses are identified. The urinary bladder is anechoic. Bilateral ureteral jets are seen. IMPRESSION: Normal kidneys are favored as described.
== END | disposition home or self-care (01) ==
LOC: RADUSWWP 12:06
PROVIDERS: ATTEND Urology
DX: R31.0 Gross hematuria (principal)
CPT/HCPCS: 76770

== ENCOUNTER → 2021-12-22 | Outpatient (CLI) | payer MEDICARE ==
[2021-12-22 11:13] LABS: Basophils # (A) 0.05 X 10*3/uL (0.00-0.10); Basophils % (A) 0.6 %; Eosinophils % (A) 2.3 %; HCT 43.1 % (37.2-46.3); Immature Grans, Automated 0.2 %; Lymphocytes # (A) 1.94 X 10*3/uL (0.90-5.00); Lymphocytes % (A) 22.4 %; MCH 31.2 pg (27.0-32.0); MCHC 32.5 g/dL (32.0-37.0); Mean Platelet Volume 9.3 fL (9.5-12.2); Monocytes # (A) 0.64 X 10*3/uL (0.20-1.00); Monocytes % (A) 7.4 %; NRBC Per 100 WBC 0 /100 WBCS (0.0-0.0); Neutrophils # (A) 5.82 X 10*3/uL (1.80-7.70); Neutrophils % (A) 67.1 %; Platelet Count 241 X 10*3/uL (140-440); RBC 4.49 X 10*6/uL (4.10-5.20); RDW 12.6 % (11.5-14.5); WBC 8.67 X 10*3/uL (4.50-10.00)
[2021-12-22 11:45] LABS: % Iron Saturation 15.68 (12.00-45.00); ALT 18 U/L (8-44); AST 16 U/L (13-35); African American GFR (CKD) 75.1 (60.0-200.0); Albumin 4.5 g/dL (3.8-4.9); Albumin/Globulin Ratio 2.05 (1.60-3.17); Alkaline Phosphatase 132 U/L (41-126); BUN/Creat Ratio 19.89 Ratio (12.00-20.00); Blood Urea Nitrogen 17.9 mg/dL (9.0-27.0); Calcium 9.3 mg/dL (8.7-10.3); Carbon Dioxide 21.4 mmol/L (20.0-27.5); Chloride 105 mmol/L (96-109); Chol/HDL Ratio 2.85 Ratio; Globulin 2.2 g/dL (1.6-3.3); Glucose 102 mg/dL (70-110); Iron 62 ug/dL (50-170); LDL Cholesterol,Calculated 82.1 mg/dL (0.0-131.0); Non-African American GFR(CKD) 64.8 (60.0-200.0); Potassium 4.1 mmol/L (3.5-5.5); Sodium 142 mmol/L (135-145); Total Iron Binding Capacity 395 ug/dL (228-460); Total Protein 6.7 g/dL (6.2-8.2); VLDL Calculation 13.36 mg/dL (5.00-40.00)
[2021-12-24 18:07] LABS: Gliadin AB IgA, Deaminated NEGATIVE (NEGATIVE); Gliadin AB IgA, Unit 0.7 U/mL; Gliadin AB IgG, Deaminated NEGATIVE (NEGATIVE); Gliadin AB IgG, Unit <0.4 U/mL; Tis Transglutaminase IgA Unit <0.5 AI; Tis Transglutaminase IgG Unit <0.8 U/mL; Tissue Transglutaminase IgA NEGATIVE (NEGATIVE); Tissue Transglutaminase IgG NEGATIVE (NEGATIVE)
== END | disposition home or self-care (01) ==
LOC: LABWHC1 08:20
PROVIDERS: ATTEND Internal Medicine
DX: I10 Essential (primary) hypertension (principal); E78.2 Mixed hyperlipidemia; L65.9 Nonscarring hair loss, unspecified; R19.7 Diarrhea, unspecified
CPT/HCPCS: 36415; 80053; 80061; 82607; 82728; 82746; 83516; 83540; 83550; 84439; 84443; 85025

== ENCOUNTER → 2022-02-15 | Outpatient (CLI) | payer MEDICARE ==
[2022-02-15 14:50] LABS: Basophils # (A) 0.06 X 10*3/uL (0.00-0.10); Basophils % (A) 0.8 %; Eosinophils # (A) 0.21 X 10*3/uL (0.04-0.35); Eosinophils % (A) 2.9 %; HCT 43.2 % (37.2-46.3); HGB 14.3 g/dL (12.0-15.0); Immature Grans, Automated 0.3 %; Lymphocytes # (A) 1.96 X 10*3/uL (0.90-5.00); Lymphocytes % (A) 27.1 %; MCH 31.8 pg (27.0-32.0); MCHC 33.1 g/dL (32.0-37.0); Mean Platelet Volume 9.5 fL (9.5-12.2); Monocytes # (A) 0.54 X 10*3/uL (0.20-1.00); Monocytes % (A) 7.5 %; NRBC Per 100 WBC 0 /100 WBCS (0.0-0.0); Neutrophils # (A) 4.45 X 10*3/uL (1.80-7.70); Neutrophils % (A) 61.4 %; Platelet Count 278 X 10*3/uL (140-440); RDW 13.2 % (11.5-14.5); WBC 7.24 X 10*3/uL (4.50-10.00)
[2022-02-15 14:51] LABS: African American GFR (CKD) 66.1 (60.0-200.0); Anion Gap 11.3 mmol/L (10.00-18.00); Blood Urea Nitrogen 17.1 mg/dL (9.0-27.0); Carbon Dioxide 25.7 mmol/L (20.0-27.5); Potassium 4.2 mmol/L (3.5-5.5)
== END | disposition home or self-care (01) ==
LOC: LABPAT 08:08
PROVIDERS: ATTEND Internal Medicine Interventional Cardiology
DX: Z01.812 Encounter for preprocedural laboratory examination (principal); R07.9 Chest pain, unspecified
CPT/HCPCS: 80051; 82565; 84520; 85025

== ENCOUNTER 2022-05-19 13:14 | Inpatient (IN) | payer BC, MEDICARE ==
[2022-05-19] MEDS ORDERED: AMPICILLIN-SULBACTAM 3 GM in SODIUM CHLORIDE 0.9% 100 ML IVPB STA (13:47)
[2022-05-19] MEDS ORDERED: HYDROmorphone 0.5 MG/0.5 ML SYRINGE IVP STA (13:48)
[2022-05-19 14:28] LABS: Basophils % (A) 0 %; Eosinophils # (A) 0.1 k/uL (0-0.7); Eosinophils % (A) 1 %; HCT 40.5 % (34.0-46.0); HGB 13.9 gm/dL (11.4-16.0); Lymphocytes # (A) 0.9 k/uL (1.0-4.8); Lymphocytes % (A) 5 %; MCH 33.1 pg (25.0-35.0); MCHC 34.4 g/dL (31.0-37.0); MCV 96.2 fL (80.0-100.0); Mean Platelet Volume 7.1; Monocytes # (A) 0.7 k/uL (0-1.0); Monocytes % (A) 4 %; Neutrophils # (A) 14.7 k/uL (1.3-7.7); Neutrophils % (A) 89 %; Platelet Count 275 k/uL (150-450); RBC 4.21 m/uL (3.80-5.40); RDW 13.2 % (11.5-15.5); WBC 16.5 k/uL (3.8-10.6)
[2022-05-19 14:40] LABS: Albumin 4.1 g/dL (3.5-5.0); Calcium 8.7 mg/dL (8.4-10.2); Potassium 4.1 mmol/L (3.5-5.1); Total Protein 6.4 g/dL (6.3-8.2)
--- NOTE | 2022-05-19 14:50 | ED ---
General Adult HPI - General Chief complaint: Abdominal Pain Stated complaint: diverticulitis flare Time Seen by Provider: 05/19/22 13:20 Source: patient, RN notes reviewed, old records reviewed Mode of arrival: ambulatory Limitations: no limitations - History of Present Illness Initial comments: This is a 71-year-old female presents emergency Department complaining of left lower quadrant abdominal patient states it feels like her diverticulitis. Hailey ent states she's had multiple times in the past. Patient states the pain is unbearable and she could not wait to see Dr. Leo after the holiday. Patient denies any vomiting or diarrhea. Patient denies any fever or chills. Patient states area is point tender on the left lower quadrant. - Related Data Home Medications Medication Instructions Recorded Confirmed Flecainide Acetate [Tambocor] 150 mg PO BID 07/17/18 02/19/22 Cholecalciferol (Vitamin D3) 250 mcg PO DAILY 02/20/21 02/19/22 [Vitamin D3 (5000 Iu)] lisinopriL [Zestril] 2.5 mg PO HS PRN 08/26/21 02/19/22 Aspirin 325 mg PO DAILY 02/15/22 02/19/22 Cyanocobalamin/Cobamamide [Vitamin 1 tab PO DAILY 02/15/22 02/19/22 B-12 5,000 Mcg Tab Sl] Elderberry Fruit and Flower [Black 1 each PO DAILY 02/15/22 02/19/22 Elderberry 575 mg Cap] Vitamin C/Biotin [Hair, Skin and 1 tab PO DAILY 02/15/22 02/19/22 Nails Chew] Previous Rx's Medication Instructions Recorded Albuterol Inhaler [Ventolin Hfa 2 puff INHALATION RT-QID PRN 30 08/30/21 Inhaler] Days #1 unit Allergies Allergy/AdvReac Type Severity Reaction Status Date / Time Beef Containing Products AdvReac SEVERE Verified 05/19/22 13:18 MIGRAINES levofloxacin [From Levaquin] AdvReac Nausea & Verified 05/19/22 13:18 Vomiting & Diarrhea Review of Systems ROS Statement: Those systems with pertinent positive or pertinent negative responses have been documented in the HPI. ROS Other: All systems not noted in ROS Statement are negative. Past Medical History Past Medical History: Atrial Fibrillation History of Any Multi-Drug Resistant Organisms: None Reported Past Surgical History: Appendectomy, Section, Hernia Repair, Hysterectomy, Tonsillectomy Past Anesthesia/Blood Transfusion Reactions: Postoperative Nausea & Vomiting (PONV) Past Psychological History: No Psychological Hx Reported Smoking Status: Never smoker Past Alcohol Use History: None Reported Past Drug Use History: None Reported - Past Family History Mother Family Medical History: No Reported History Father Family Medical History: Congestive Heart Failure (CHF), Diabetes Mellitus General Exam - General Exam Comments Initial Comments: GENERAL: Patient is well-developed and well-nourished. Patient is nontoxic and well- hydrated and is in moderate distress. ENT: Neck is soft and supple. No significant lymphadenopathy is noted. Oropharynx is clear. Moist mucous membranes. Neck has full range of motion without eliciting any pain. EYES: The sclera were anicteric and conjunctiva were pink and moist. Extraocular movements were intact and pupils were equal round and reactive to light. Eyelids were unremarkable. PULMONARY: Unlabored respirations. Good breath sounds bilaterally. No audible rales rh onchi or wheezing was noted. CARDIOVASCULAR: There is a regular rate and rhythm without any murmurs gallops or rubs. ABDOMEN: Patient has point tenderness left lower quadrant with rebound. SKIN: Skin is clear with no lesions or rashes and otherwise unremarkable. NEUROLOGIC: Patient is alert and oriented x3. Cranial nerves II through XII are grossly intact. Motor and sensory are also intact. Normal speech, volume and content. Symmetrical smile. MUSCULOSKELETAL: Normal extremities with adequate strength and full range of motion. No lower extremity swelling or edema. No calf tenderness. LYMPHATICS: No significant lymphadenopathy is noted PSYCHIATRIC: Normal psychiatric evaluation. Limitations: no limitations Course Vital Signs 05/19/22 13:16 Temperature 97.6 F Pulse Rate 78 Respiratory 19 Rate Blood Pressure 125/76 O2 Sat by Pulse 94 L Oximetry Medical Decision Making - Medical Decision Making CT of the abdomen shows diverticulitis. Patient was started on Unasyn when she arrived. Patient also got pain medicine. I spoke with Dr. Leo he agreed to admit the patient admitted the patient wrote admitting orders. I continued antibiotics on the floor - Lab Data Result diagrams: 05/19/22 14:01 05/19/22 14:01 Lab Results 05/19/22 05/19/22 05/19/22 Range/Units 14:01 14:01 14:01 WBC 16.5 H (3.8-10.6) k/uL RBC 4.21 (3.80-5.40) m/uL Hgb 13.9 (11.4-16.0) gm/dL Hct 40.5 (34.0-46.0) % MCV 96.2 (80.0-100.0) fL MCH 33.1 (25.0-35.0) pg MCHC 34.4 (31.0-37.0) g/dL RDW 13.2 (11.5-15.5) % Plt Count 275 (150-450) k/uL MPV 7.1 Neutrophils % 89 % Lymphocytes % 5 % Monocytes % 4 % Eosinophils % 1 % Basophils % 0 % Neutrophils # 14.7 H (1.3-7.7) k/uL Lymphocytes # 0.9 L (1.0-4.8) k/uL Monocytes # 0.7 (0-1.0) k/uL Eosinophils # 0.1 (0-0.7) k/uL Basophils # 0.0 (0-0.2) k/uL Sodium 136 L (137-145) mmol/L Potassium 4.1 (3.5-5.1) mmol/L Chloride 104 (98-107) mmol/L Carbon Dioxide 25 (22-30) mmol/L Anion Gap 7 mmol/L BUN 15 (7-17) mg/dL Creatinine 0.81 (0.52-1.04) mg/dL Est GFR (CKD-EPI)AfAm 86 (>60 ml/min/1.73 sqM) Est GFR (CKD-EPI)NonAf 74 (>60 ml/min/1.73 sqM) Glucose 114 H (74-99) mg/dL Plasma Lactic Acid Jeremy 0.8 (0.7-2.0) mmol/L Calcium 8.7 (8.4-10.2) mg/dL Total Bilirubin 1.0 (0.2-1.3) mg/dL AST 19 (14-36) U/L ALT 13 (4-34) U/L Alkaline Phosphatase 123 (38-126) U/L Total Protein 6.4 (6.3-8.2) g/dL Albumin 4.1 (3.5-5.0) g/dL Amylase 50 (30-110) U/L Lipase 28 (23-300) U/L Disposition Clinical Impression: Diverticulitis Disposition: ADMITTED IP TO THIS HOSP Referrals: Daisy Leo MD [Primary Care Provider] - 1-2 days Time of Disposition: 15:45
[2022-05-19] MEDS ORDERED: SODIUM CHLORIDE 0.9% 1,000 ML IV ONE (15:45)
[2022-05-19] MEDS ORDERED: HYDROmorphone 0.5 MG/0.5 ML SYRINGE IVP PRN (15:47)
--- NOTE | 2022-05-19 15:55 | CT ---
EXAMINATION TYPE: CT abdomen pelvis w con DATE OF EXAM: 05/19/2022 COMPARISON: 02/19/2021 HISTORY: abdominal pain, hx of diverticulitis CT DLP: 1176.8 mGycm Automated exposure control for dose reduction was used. CONTRAST: Performed with IV Contrast, patient injected with 100 mL of Isovue 300. There is some patchy subsegmental atelectasis at the lung bases. There is no pleural effusion. Heart is slightly enlarged. Liver is intact. There are multiple calcified granulomata in the spleen. Stomach is intact. There is no pancreatic mass. There are clips from cholecystectomy. There is no adrenal mass. Kidneys show satisfactory contrast opacification. There is no hydronephrosi s. Delayed images show normal renal excretion. There is no retroperitoneal adenopathy. Bladder disten ds smoothly. No free fluid in the pelvis. There are numerous sigmoid diverticula. There is fat stranding and wall thickening of the proximal si gmoid colon. There is no inguinal hernia. No pelvic mass. Appendix not definitely seen. No sign of thickened appen nir. The lumbar spine is intact. No compression fracture. Bony pelvis is intact. There is expansile sacral cysts at the S3-S4 level. The hip joints are intact. IMPRESSION: There is a 10 cm segment of sigmoid diverticulitis which is new compared to old exam. There is modera te sigmoid diverticulosis. There is mild subsegmental atelectasis at the lung bases which is new comp ared to old exam.
[2022-05-19] MEDS ORDERED: ALBUTEROL NEBULIZED 2.5 MG/3 ML INHALATION PRN (17:33)
[2022-05-19 17:40] LABS: Appearance,Urine Clear (Clear); Bilirubin,Urine Negative (Negative); Blood,Urine Moderate (Negative); Color,Urine Light Yellow; Glucose,Urine (UA) Negative (Negative); Ketones,Urine 1+ (Negative); Leukocyte Esterase,Urine Negative (Negative); Nitrite,Urine Negative (Negative); PH, Urine 5.5 (5.0-8.0); Protein,Urine Trace (Negative); RBC,Urine 9 /hpf (0-5); Squamous Epithelial Cell,Urine <1 /hpf (0-4); Urobilinogen,Urine <2.0 mg/dL (<2.0); WBC,Urine 4 /hpf (0-5)
[2022-05-19 17:46] LABS: Specific Gravity,Urine >1.050 (1.001-1.035)
[2022-05-19] MEDS ORDERED: ACETAMINOPHEN TAB 325 MG TAB PO PRN (19:03)
[2022-05-19] MEDS: KETOROLAC 15 MG/ML 1 ML VIAL IVP PRN (19:23)
[2022-05-19] MEDS: AMPICILLIN-SULBACTAM 3 GM in SODIUM CHLORIDE 0.9% 100 ML IVPB SCH (20:42)
[2022-05-19] MEDS: FLECAINIDE 50 MG TAB PO SCH (20:42)
[2022-05-19] MEDS: HEPARIN SODIUM,PORCINE/PF 5,000 UNIT/0.5 ML SYRINGE SQ SCH (20:43)
[2022-05-20] MEDS: AMPICILLIN-SULBACTAM 3 GM in SODIUM CHLORIDE 0.9% 100 ML IVPB SCH ×4 (01:22→21:35)
[2022-05-20] MEDS: KETOROLAC 15 MG/ML 1 ML VIAL IVP PRN ×3 (01:22→23:16)
[2022-05-20] MEDS: HEPARIN SODIUM,PORCINE/PF 5,000 UNIT/0.5 ML SYRINGE SQ SCH ×2 (07:00→21:34)
[2022-05-20] MEDS: FLECAINIDE 50 MG TAB PO SCH ×2 (07:00→21:35)
--- NOTE | 2022-05-20 09:10 | P.HPIM ---
History of Present Illness This is a pleasant 71 years old female with past medical history of atrial fibrillation on flecainide and aspirin but no blood thinner. She is a patient of Dr. Leo Presents because of abdominal pain in the left lower quadrant of the abdomen for the last 3-4 days, moderate in severity Patient vomited twice this morning She did not have bowel movement since she came in but she is passing gas. She denies smoking, alcohol or illicit tracts. No chest pain or dyspnea. No urinary complaints. She states she has some low-grade fever, and a 99.7. Her head athletic trainer Dr. Smith who put her on flecainide and aspirin. No blood thinner. Vitas looks stable. Labs showed leukocytosis 16.5, creatinine normal 0.8, rest of CBC, BMP and liver enzymes are unremarkable. Looks concentrated. CT of the abdomen and pelvis with contrast: There is 10 cm segment of sigmoid diverticulitis which is a new compared to old exam In the emergency room patient was started on IV fluids and normal saline plus Unasyn Review of Systems Review of systems CONSTITUTIONAL: No fever, no malaise, no fatigue. HEENT: No recent visual problems or hearing problems. Denied any sore throat. CARDIOVASCULAR: No orthopnea, PND, no palpitations, no syncope. PULMONARY: No shortness of breath, no cough, no hemoptysis. GASTROINTESTINAL: No diarrhea, no nausea, Normoactive bowel sounds. NEUROLOGICAL: No headaches, no weakness, no numbness. HEMATOLOGICAL: Denies any bleeding or petechiae. GENITOURINARY: Denies any burning micturition, frequency, or urgency. MUSCULOSKELETAL/RHEUMATOLOGICAL: Denies any joint pain, swelling, or any muscle pain. ENDOCRINE: Denies any polyuria or polydipsia. Past Medical History Past Medical History: Atrial Fibrillation History of Any Multi-Drug Resistant Organisms: None Reported Past Surgical History: Appendectomy, Section, Hernia Repair, Hysterectomy, Tonsillectomy Past Anesthesia/Blood Transfusion Reactions: Postoperative Nausea & Vomiting (PONV) Past Psychological History: No Psychological Hx Reported Smoking Status: Never smoker Past Alcohol Use History: None Reported Past Drug Use History: None Reported - Past Family History Mother Family Medical History: No Reported History Father Family Medical History: Congestive Heart Failure (CHF), Diabetes Mellitus Medications and Allergies Home Medications Medication Instructions Recorded Confirmed Type Flecainide Acetate [Tambocor] 150 mg PO BID 07/17/18 05/19/22 History Cholecalciferol (Vitamin D3) 125 mcg PO DAILY 02/20/21 05/19/22 History [Vitamin D3 (5000 Iu)] Albuterol Inhaler [Ventolin Hfa 2 puff INHALATION RT-QID PRN 30 08/30/21 05/19/22 Rx Inhaler] Days #1 unit Aspirin 325 mg PO DAILY 02/15/22 05/19/22 History Elderberry Fruit and Flower [Black 1 cap PO DAILY 02/15/22 05/19/22 History Elderberry 575 mg Cap] Vitamin C/Biotin [Hair, Skin and 1 tab PO DAILY 02/15/22 05/19/22 History Nails Chew] Ascorbic Acid [Vitamin C] 1,000 mg PO Q48H 05/19/22 05/19/22 History Allergies Allergy/AdvReac Type Severity Reaction Status Date / Time Beef Containing Products AdvReac SEVERE Verified 05/19/22 16:35 MIGRAINES levofloxacin [From Levaquin] AdvReac Nausea & Verified 05/19/22 16:35 Vomiting & Diarrhea Physical Exam Vitals: Vital Signs Temp Pulse Pulse Resp BP BP Pulse Ox 05/20/22 07:47 98.5 F 62 18 132/71 95 05/20/22 02:00 98.8 F 56 L 16 147/83 96 05/19/22 19:30 72 16 05/19/22 19:28 99.5 F 72 16 144/79 94 L 05/19/22 16:34 98.2 F 67 18 130/70 98 05/19/22 16:00 98.6 F 78 18 122/78 98 05/19/22 13:16 97.6 F 78 19 125/76 94 L Intake and Output 05/19/22 05/20/22 05/20/22 22:59 06:59 14:59 Other: Voiding Method Toilet # Voids 1 2 # Bowel Movements 0 Weight 90.718 kg GENERAL: The patient is alert and oriented x3, not in any acute distress. Well developed, well nourished. HEENT: Pupils are round and equally reacting to light. EOMI. No scleral icterus. No conjunctival pallor. Normocephalic, atraumatic. No pharyngeal erythema. No thyromegaly. CARDIOVASCULAR: S1 and S2 present. No murmurs, rubs, or gallops. PULMONARY: Chest is clear to auscultation, no wheezing or crackles. -ABDOMEN: Soft, mild LLQ tenderness with no rebound tenderness, nondistended, normoactive bowel sounds. No palpable organomegaly. MUSCULOSKELETAL: No joint swelling or deformity. EXTREMITIES: No cyanosis, clubbing, or pedal edema. NEUROLOGICAL: Gross neurological examination did not reveal any focal deficits. SKIN: No rashes. no petechiae. Results CBC & Chem 7: 05/19/22 14:05/19/22 14: Labs: Abnormal Lab Results - Last 24 Hours (Table) 05/19/22 05/19/22 05/19/22 Range/Units 14: 14: 14: WBC 16.5 H (3.8-10.6) k/uL Neutrophils # 14.7 H (1.3-7.7) k/uL Lymphocytes # 0.9 L (1.0-4.8) k/uL Sodium 136 L (137-145) mmol/L Glucose 114 H (74-99) mg/dL Ur Specific [place] >1.050 H (1.001-1.035) Urine Protein Trace H (Negative) Urine Ketones 1+ H (Negative) Urine Blood Moderate H (Negative) Urine RBC 9 H (0-5) /hpf Thrombosis Risk Factor Assmnt - Choose All That Apply Any of the Below Risk Factors Present?: Yes Each Factor Represents 1 point: Obesity (BMI >25) Other Risk Factors: Yes Each Risk Factor Represents 2 Points: Age 61-74 years Each Risk Factor Represents 3 Points: Family history of DVT/PE Thrombosis Risk Factor Assessment Total Risk Factor Score: 6 Thrombosis Risk Factor Assessment Level: High Risk Assessment and Plan Assessment: acute diverticulitis Chronic atrial fibrillation on flecainide and aspirin Obesity with BMI of 30.4 Plan: This is a pleasant 71 years old female who presents with acute recurrent diverticulitis Bowel rest IV fluids Pain management Continue with Unasyn Hold aspirin until cleared by surgeon , discussed with the bedside nurse Surgical team consult Labs and medication were reviewed.. Continue same treatment. Continue with symptomatic treatment. Resume home medication. Monitor lytes and vitals. DVT and GI prophylaxis. Further recommendations as per clinical course of the patient DVT prophylaxis: Subcutaneous heparin GI Prophylaxis: Pepcid Prognosis is guarded Status with bedside nurse
--- NOTE | 2022-05-20 10:11 | P.GSCN ---
History of Present Illness Consult date: 05/20/22 Reason for Consult: Diverticulitis History of present illness: Is a 71-year-old female seen in the hospital complaints of left-sided abdominal pain. Patient has a known history of diverticula is. She's had several attacks of diverticulitis the past. She states these usually resolve with antibiotics. She states her pain is improved since last night. Past Medical History Past Medical History: Atrial Fibrillation History of Any Multi-Drug Resistant Organisms: None Reported Past Surgical History: Appendectomy, Section, Hernia Repair, Hyst erectomy, Tonsillectomy Past Anesthesia/Blood Transfusion Reactions: Postoperative Nausea & Vomiting (PONV) Past Psychological History: No Psychological Hx Reported Smoking Status: Never smoker Past Alcohol Use History: None Reported Past Drug Use History: None Reported - Past Family History Mother Family Medical History: No Reported History Father Family Medical History: Congestive Heart Failure (CHF), Diabetes Mellitus Medications and Allergies Home Medications Medication Instructions Recorded Confirmed Type Flecainide Acetate [Tambocor] 150 mg PO BID 07/17/18 05/19/22 History Cholecalciferol (Vitamin D3) 125 mcg PO DAILY 02/20/21 05/19/22 History [Vitamin D3 (5000 Iu)] Albuterol Inhaler [Ventolin Hfa 2 puff INHALATION RT-QID PRN 30 08/30/21 05/19/22 Rx Inhaler] Days #1 unit Aspirin 325 mg PO DAILY 02/15/22 05/19/22 History Elderberry Fruit and Flower [Black 1 cap PO DAILY 02/15/22 05/19/22 History Elderberry 575 mg Cap] Vitamin C/Biotin [Hair, Skin and 1 tab PO DAILY 02/15/22 05/19/22 History Nails Chew] Ascorbic Acid [Vitamin C] 1,000 mg PO Q48H 05/19/22 05/19/22 History Allergies Allergy/AdvReac Type Severity Reaction Status Date / Time Beef Containing Products AdvReac SEVERE Verified 05/19/22 16:35 MIGRAINES levofloxacin [From Levaquin] AdvReac Nausea & Verified 05/19/22 16:35 Vomiting & Diarrhea Surgical - Exam Vital Signs Temp Pulse Resp BP Pulse Ox 97.6 F 78 19 125/76 94 L 05/19/22 13:16 05/19/22 13:16 05/19/22 13:16 05/19/22 13:16 05/19/22 13:16 - General well developed, well nourished, no distress - Eyes PERRL - ENT normal pinna - Neck no masses - Respiratory normal expansion - Cardiovascular Rhythm: regular - Abdomen Abdomen: soft, non tender Results - Labs 05/19/22 14:01 05/19/22 14:01 Abnormal Lab Results - Last 24 Hours (Table) 05/19/22 05/19/22 05/19/22 Range/Units 14:01 14:01 14:01 WBC 16.5 H (3.8-10.6) k/uL Neutrophils # 14.7 H (1.3-7.7) k/uL Lymphocytes # 0.9 L (1.0-4.8) k/uL Sodium 136 L (137-145) mmol/L Glucose 114 H (74-99) mg/dL Ur Specific [place] >1.050 H (1.001-1.035) Urine Protein Trace H (Negative) Urine Ketones 1+ H (Negative) Urine Blood Moderate H (Negative) Urine RBC 9 H (0-5) /hpf Diabetes panel 05/19/22 Range/Units 14:01 Sodium 136 L (137-145) mmol/L Potassium 4.1 (3.5-5.1) mmol/L Chloride 104 (98-107) mmol/L Carbon Dioxide 25 (22-30) mmol/L BUN 15 (7-17) mg/dL Creatinine 0.81 (0.52-1.04) mg/dL Glucose 114 H (74-99) mg/dL Calcium 8.7 (8.4-10.2) mg/dL AST 19 (14-36) U/L ALT 13 (4-34) U/L Alkaline Phosphatase 123 (38-126) U/L Total Protein 6.4 (6.3-8.2) g/dL Albumin 4.1 (3.5-5.0) g/dL Calcium panel 05/19/22 Range/Units 14:01 Calcium 8.7 (8.4-10.2) mg/dL Albumin 4.1 (3.5-5.0) g/dL Pituitary panel 05/19/22 Range/Units 14:01 Sodium 136 L (137-145) mmol/L Potassium 4.1 (3.5-5.1) mmol/L Chloride 104 (98-107) mmol/L Carbon Dioxide 25 (22-30) mmol/L BUN 15 (7-17) mg/dL Creatinine 0.81 (0.52-1.04) mg/dL Glucose 114 H (74-99) mg/dL Calcium 8.7 (8.4-10.2) mg/dL Adrenal panel 05/19/22 Range/Units 14:01 Sodium 136 L (137-145) mmol/L Potassium 4.1 (3.5-5.1) mmol/L Chloride 104 (98-107) mmol/L Carbon Dioxide 25 (22-30) mmol/L BUN 15 (7-17) mg/dL Creatinine 0.81 (0.52-1.04) mg/dL Glucose 114 H (74-99) mg/dL Calcium 8.7 (8.4-10.2) mg/dL Total Bilirubin 1.0 (0.2-1.3) mg/dL AST 19 (14-36) U/L ALT 13 (4-34) U/L Alkaline Phosphatase 123 (38-126) U/L Total Protein 6.4 (6.3-8.2) g/dL Albumin 4.1 (3.5-5.0) g/dL Assessment and Plan Assessment: Diverticula is. Patient will continue IV antibiotic. She'll be on full liquid diet.
[2022-05-21] MEDS: AMPICILLIN-SULBACTAM 3 GM in SODIUM CHLORIDE 0.9% 100 ML IVPB SCH ×3 (01:45→14:39)
[2022-05-21] MEDS: FLECAINIDE 50 MG TAB PO SCH (06:59)
[2022-05-21] MEDS: HEPARIN SODIUM,PORCINE/PF 5,000 UNIT/0.5 ML SYRINGE SQ SCH (07:00)
[2022-05-21 07:42] VITALS: BP 151/83; PULSE 56; RESP 17; TEMP 98.2
--- NOTE | 2022-05-21 12:50 | P.PN ---
Subjective Progress Note Date: 05/21/22 Principal diagnosis: Diverticulitis 71-year-old female known to our service. Patient minute with diverticulitis involving the proximal sigmoid colon. When she came to the hospital pain was 9 out of 10. Today is down to 1 or 2. She would like to go home today. She is tolerating her full liquid diet. She is afebrile. White blood cell count was 16 on 05/19. This has not been repeated. Last colonoscopy 1 year ago. Objective - Vital Signs Vital signs: Vital Signs Temp 98.2 F 05/21/22 07:41 Pulse 56 L 05/21/22 07:41 Resp 17 05/21/22 07:41 BP 151/83 05/21/22 07:41 Pulse Ox 96 05/21/22 07:41 FiO2 Intake & Output 05/20/22 05/21/22 05/21/22 18:59 06:59 18:59 Intake Total 1125 Balance 1125 Intake: Intake, IV Titration 1125 Amount Ampicillin-Sulbactam 3 gm 200 In Sodium Chloride 0.9% 100 ml @ 200 mls/hr IVPB Q6H [facility] Rx#:[id number] Sodium Chloride 0.9% 1, 925 000 ml @ 75 mls/hr IV . [id number] Rx#:[id number] Other: # Voids 3 2 # Bowel Movements 1 - Exam Abdomen: Soft, nondistended, minimal left lower quadrant tenderness to deep palpation - Labs CBC & Chem 7: 05/19/22 14:01 05/19/22 14:01 Labs: Microbiology - Last 24 Hours (Table) 05/19/22 13:45 Blood Culture - Preliminary Blood No Growth after 24 hours 05/19/22 14:00 Blood Culture - Preliminary Blood No Growth after 24 hours Assessment and Plan (1) Diverticulitis Narrative/Plan: 71-year-old female with acute sigmoid diverticulitis. Continue antibiotics. Gradually advance diet as tolerated. May discharge from our point of view if repeat white blood cell count improved. Current Visit: Yes Status: Acute Code(s): K57.92 - DVTRCLI OF INTEST, PART UNSP, W/O PERF OR ABSCESS W/O BLEED SNOMED Code(s): 999070984
--- NOTE | 2022-05-21 13:03 | P.DS ---
Providers Date of admission: 05/19/22 15:45 Expected date of discharge: 05/21/22 Attending physician: Daisy Leo Consults: 05/19/22 18:03 Consult Physician Urgent Consulting Provider: Chino Lynn Consult Reason/Comments: diverticulitis Do you want consulting provider notified?: Yes Primary care physician: Daisy Leo Hospital Course: This is a 71-year-old female with past medical history of atrial fibrillation on flecainide and aspirin but no blood thinner. She is a patient of Dr. Leo Presents because of abdominal pain in the left lower quadrant of the abdomen for the last 3-4 days, moderate in severity Patient vomited twice this morning She did not have bowel movement since she came in but she is passing gas. She denies smoking, alcohol or illicit tracts. No chest pain or dyspnea. No urinary complaints. She states she has some low-grade fever, and a 99.7. Her appliance assembler Dr. Smith who put her on flecainide and aspirin. No blood thinner. Vitas looks stable. Labs showed leukocytosis 16.5, creatinine normal 0.8, rest of CBC, BMP and liver enzymes are unremarkable. Looks concentrated. CT of the abdomen and pelvis with contrast: There is 10 cm segment of sigmoid diverticulitis which is a new compared to old exam In the emergency room patient was started on IV fluids and normal saline plus Unasyn 7/5: Patient has been seen by Dr. Nash this morning and has been cleared for discharge once WBC is reported. Patient states she has had 1 bowel movement. No nausea or vomiting. She is tolerating full liquid diet which is been advanced to low fiber with no seeds or nuts. She has been afebrile, heart rate in the 50s, blood pressure 151/83, pulse ox 96% on room air. WBC 7.2, hemoglobin 13.[address] count 270[address]. Nash is sent prescriptions for Flagyl and Augmentin to patient's pharmacy. Patient will be discharged home today in stable condition. DISCHARGE DIAGNOSES Diverticulitis involving the proximal sigmoid colon Paroxysmal atrial fibrillation Vitamin B12 deficiency anemia Vitamin D deficiency History of Chronic hypoxic respiratory failure requiring home oxygen therapy DISCHARGE PLAN home Greater than 35 minutes was utilized and coordinating patient's discharge. Impression and plan of care have been directed as dictated by the signing physician. Marcia Martines nurse practitioner acting as scribe for signing physician. Patient Condition at Discharge: Good Plan - Discharge Summary Discharge Rx Participant: Yes New Discharge Prescriptions: New Amoxic-Pot Clav 875-125Mg [Augmentin 875-125] 1 tab PO BID 1 Days #28 tab metroNIDAZOLE [Flagyl] 500 mg PO TID #42 tab Continue Flecainide Acetate [Tambocor] 150 mg PO BID Albuterol Inhaler [Ventolin Hfa Inhaler] 2 puff INHALATION RT-QID PRN 30 Days #1 unit PRN Reason: Dyspnea Vitamin C/Biotin [Hair, Skin and Nails Chew] 1 tab PO DAILY Cholecalciferol (Vitamin D3) [Vitamin D3 (5000 Iu)] 125 mcg PO DAILY Elderberry Fruit and Flower [Black Elderberry 575 mg Cap] 1 cap PO DAILY Aspirin 325 mg PO DAILY Ascorbic Acid [Vitamin C] 1,000 mg PO Q48H Discharge Medication List Flecainide Acetate [Tambocor] 150 mg PO BID 07/17/18 [History] Cholecalciferol (Vitamin D3) [Vitamin D3 (5000 Iu)] 125 mcg PO DAILY 02/20/21 [History] Albuterol Inhaler [Ventolin Hfa Inhaler] 2 puff INHALATION RT-QID PRN 30 Days #1 unit 08/30/21 [Rx] Aspirin 325 mg PO DAILY 02/15/22 [History] Elderberry Fruit and Flower [Black Elderberry 575 mg Cap] 1 cap PO DAILY 02/15/22 [History] Vitamin C/Biotin [Hair, Skin and Nails Chew] 1 tab PO DAILY 02/15/22 [History] Ascorbic Acid [Vitamin C] 1,000 mg PO Q48H 05/19/22 [History] Amoxic-Pot Clav 875-125Mg [Augmentin 875-125] 1 tab PO BID 1 Days #28 tab 05/21/22 [Rx] metroNIDAZOLE [Flagyl] 500 mg PO TID #42 tab 05/21/22 [Rx] Follow up Appointment(s)/Referral(s): Jamie Nash MD [Medical Doctor] - 06/19/22 3:45 pm Daisy Leo MD [Primary Care Provider] - 1 Week (Please call office for your appointment) Discharge Disposition: HOME SELF-CARE
[2022-05-21 13:39] LABS: Basophils # (A) 0.1 k/uL (0-0.2); Basophils % (A) 1 %; Eosinophils # (A) 0.2 k/uL (0-0.7); Eosinophils % (A) 3 %; HCT 40.5 % (34.0-46.0); HGB 13.8 gm/dL (11.4-16.0); Lymphocytes # (A) 1.5 k/uL (1.0-4.8); Lymphocytes % (A) 21 %; MCH 33.4 pg (25.0-35.0); MCHC 34.2 g/dL (31.0-37.0); MCV 97.8 fL (80.0-100.0); Mean Platelet Volume 7.2; Monocytes # (A) 0.3 k/uL (0-1.0); Monocytes % (A) 5 %; Neutrophils # (A) 5.1 k/uL (1.3-7.7); Neutrophils % (A) 70 %; Platelet Count 270 k/uL (150-450); RBC 4.14 m/uL (3.80-5.40); WBC 7.2 k/uL (3.8-10.6)
--- NOTE | 2022-05-22 14:11 | PN ---
PROGRESS NOTE DATE OF SERVICE: 05/22/2022 This 81-year-old woman who was admitted with acute abdominal distention possibly ileus is on broad-spectrum antibiotics for possible UTI also. Multiple consultants are following the patient including Dr. Le and as well as Dr. Lynn. The most recent abdominal and pelvis CT scan showed some improvement of the ileus. Chest x-ray was reviewed. PAST MEDICAL HISTORY: Reviewed. REVIEW OF SYSTEM: 14-point review of system is negative except as mentioned earlier. HOME MEDICATIONS: Reviewed and they include Zosyn, Zestril. Dose and the rest of medications reviewed. PHYSICAL EXAMINATION: Pulse is 76, blood pressure 124/70, respiration 18. HEENT: Conjunctivae normal. Neck is no JVD. Cardiovascular: S1, S2. Respirations: No rhonchi. No crackles. Abdomen: Soft mild diffuse distention. Bowel sounds diminished. No guarding, rigidity. No ascites. Legs: No edema. No swelling. Nervous system: No focal deficits. LABS: WBC 9.2. Hemoglobin 12, other labs are reviewed. Cultures are negative so far. ASSESSMENT: 1. Acute abdominal distention, possibly ileus. 2. Possible acute urinary tract infection, present on admission. 3. Elevated D-dimer without any evidence of pulmonary embolism. 4. Rule out sepsis. 5. History of recent hysterectomy. 6. History of asthma. 7. History of chronic obstructive pulmonary disease. 8. Multiple medical issues. RECOMMENDATIONS AND DISCUSSION: Recommend to continue current medications, management and symptomatic treatment. Otherwise, advance diet per surgery. Increase ambulation. I would also recommend continue the IV antibiotics. Cultures are negative so far. Closely follow with surgery and DIFFERENTIAL TESTER. Further recommendations to follow. Discussed with surgery and DIFFERENTIAL TESTER. Discussed with the patient and family. MMODL / IJN: [id number] /
== END 2022-05-21 14:34 | disposition home or self-care (01) | DRG 392 ==
LOC: EC 13:14 → 4SSUR 15:45
PROVIDERS: ADMIT Internal Medicine; ATTEND Internal Medicine
DX: K57.32 Diverticulitis of large intestine without perforation or abscess without bleeding (principal); J96.11 Chronic respiratory failure with hypoxia; I48.20 Chronic atrial fibrillation, unspecified; E66.9 Obesity, unspecified; J44.9 Chronic obstructive pulmonary disease, unspecified; D51.9 Vitamin B12 deficiency anemia, unspecified; E55.9 Vitamin D deficiency, unspecified; Z68.30 Body mass index [BMI] 30.0-30.9, adult; Z79.82 Long term (current) use of aspirin; Z79.899 Other long term (current) drug therapy; Z90.710 Acquired absence of both cervix and uterus; Z88.1 Allergy status to other antibiotic agents; Z91.014 Allergy to mammalian meats
CPT/HCPCS: 36415; 74177; 80053; 81001; 82150; 83605; 83690; 85025; 87040; 96365; 96375; 99285

== ENCOUNTER → 2022-10-15 | Outpatient (CLI) | payer MEDICARE, BC ==
--- NOTE | 2022-10-16 08:25 | MM ---
Reason for Exam: Screening (asymptomatic). Last mammogram was performed 1 year(s) and 7 month(s) ago. Patient History: Menarche at age 12. First Full-Term at age 31. Late child-bearing (after 31). Left ovary removed at age 34. Right ovary removed at age 34. Hysterectomy at age 34. Postmenopausal. Other cancer. Sister had breast cancer. Risk Values: Cinthya 5 year model risk: 3.9%. NCI Lifetime model risk: 10.4%. Prior Study Comparison: 04/19/2011 Bilateral Screening Mammogram, [facility]. 01/14/2019 Screening Mammogram, [facility]. 03/13/2021 Bilateral Screening Mammogram, [facility]. Tissue Density: The breast tissue is heterogeneously dense. This may lower the sensitivity of mammography. Findings: Analyzed By CAD. There is no suspicious group of microcalcifications or new suspicious mass in either breast. There is no suspicious group of microcalcifications or new suspicious mass in either breast. Bilateral implants are intact. Overall Assessment: Benign, BI-RAD 2 Management: Screening Mammogram of both breasts in 1 year. A clinical breast exam by your physician is recommended on an annual basis and results should be correlated with mammographic findings. Electronically signed and approved by: Guillermo oHpson M.D. Radiologis
== END | disposition home or self-care (01) ==
LOC: RADMAMWWP 07:02
PROVIDERS: ATTEND Internal Medicine
DX: Z12.31 Encounter for screening mammogram for malignant neoplasm of breast (principal); Z78.0 Asymptomatic menopausal state; Z80.3 Family history of malignant neoplasm of breast; Z90.721 Acquired absence of ovaries, unilateral
CPT/HCPCS: 77063; 77067

== ENCOUNTER → 2022-10-15 | Outpatient (CLI) | payer MEDICARE, BC ==
[2022-10-15 10:29] LABS: Basophils # (A) 0.03 X 10*3/uL (0.00-0.10); Basophils % (A) 0.4 %; Eosinophils # (A) 0.19 X 10*3/uL (0.04-0.35); Eosinophils % (A) 2.7 %; Immature Grans, Automated 0.4 %; Lymphocytes # (A) 1.57 X 10*3/uL (0.90-5.00); Lymphocytes % (A) 22.7 %; MCH 32.4 pg (27.0-32.0); MCHC 33.3 g/dL (32.0-37.0); MCV 97.2 fL (80.0-97.0); Mean Platelet Volume 9.8 fL (9.5-12.2); Monocytes # (A) 0.52 X 10*3/uL (0.20-1.00); Monocytes % (A) 7.5 %; NRBC Per 100 WBC 0 /100 WBCS (0.0-0.0); Neutrophils # (A) 4.59 X 10*3/uL (1.80-7.70); Neutrophils % (A) 66.3 %; Platelet Count 233 X 10*3/uL (140-440); RBC 4.32 X 10*6/uL (4.10-5.20); WBC 6.93 X 10*3/uL (4.50-10.00)
[2022-10-15 11:19] LABS: Albumin 4.2 g/dL (3.8-4.9); Albumin/Globulin Ratio 1.97 (1.60-3.17); Anion Gap 9.5 mmol/L (10.00-18.00); BUN/Creat Ratio 21.41 Ratio (12.00-20.00); Blood Urea Nitrogen 21.3 mg/dL (9.0-27.0); Calcium 8.9 mg/dL (8.7-10.3); Carbon Dioxide 25.7 mmol/L (20.0-27.5); Globulin 2.2 g/dL (1.6-3.3); Potassium 4.1 mmol/L (3.5-5.5); T4, Free (Free Thyroxine) 1.14 ng/dL (0.800-1.800); Total Bilirubin 0.7 mg/dL (0.30-1.20); Total Protein 6.4 g/dL (6.2-8.2)
[2022-10-15 12:14] LABS: Appearance,Urine Clear (Clear); Bilirubin,Urine Negative (Negative); Blood,Urine Trace (Negative); Color,Urine Yellow (Yellow); Ketones,Urine Negative (Negative); Nitrite,Urine Negative (Negative); Specific Gravity,Urine 1.006 (1.001-1.030); Urobilinogen,Urine 0.2 (0.2,1.0)
[2022-10-15 12:20] LABS: Bacteria,Urine None Seen /HPF (None Seen)
--- NOTE | 2022-10-15 17:31 | US ---
EXAMINATION TYPE: US kidneys/renal and bladder DATE OF EXAM: 10/15/2022 COMPARISON: CT, US CLINICAL HISTORY: R31.9 hematuria. Hematuria. EXAM MEASUREMENTS: Right Kidney: 10.2 x 5.2 x 5.1 cm Left Kidney: 11.4 x 5.2 x 5.6 cm Right Kidney: Appearance of minimal hydronephrosis. Left Kidney: Anechoic to possibly hypoechoic area seen lower pole: 1.5 x 1.1 x 1.2 cm. Bladder: Bladder wall appears slightly irregular/jagged. Bilateral Jets seen: Yes Incidental finding: Multiple hyperechoic areas seen throughout the spleen, likely calcified granuloma . IMPRESSION: 1. Simple appearing small cortical renal cyst lower pole left kidney
== END | disposition home or self-care (01) ==
LOC: RADUSWWP 06:59
PROVIDERS: ATTEND Urology
DX: N28.1 Cyst of kidney, acquired (principal); R31.9 Hematuria, unspecified
CPT/HCPCS: 76770; 80053; 81001; 82306; 84439; 84443; 85025

== ENCOUNTER → 2023-03-14 | Outpatient (CLI) | payer MEDICARE, BC ==
--- NOTE | 2023-03-17 07:45 | MR ---
EXAMINATION TYPE: MR hip RT wo con DATE OF EXAM: 03/14/2023 COMPARISON: CT abdomen and pelvis the next day. HISTORY: Rt hip pain. Standard multiplanar, multisequence MRI departmental protocol Multiplanar, multisequence images of the pelvis focusing on right hip were acquired without contrast. FINDINGS: Moderate axial joint space loss and acetabular spurring of both hips is redemonstrated fair ly symmetric in appearance. There are small symmetric hip joint effusions. Femoral head shapes are ma intained bilaterally. No suspicious increased T2 signal to suggest edema. No serpiginous diminished T 1 signal to suggest avascular necrosis. Subcentimeter benign appearing bilateral groin lymph nodes ar e present bilaterally. No groin hernia is present. Muscle bulk in the bilateral thighs is symmetric a nd felt within normal limits. Diverticula in the sigmoid colon are seen. Uterus is surgically absent. No free fluid in the pelvis. IMPRESSION: Moderate degenerative change in both hips as detailed above.
== END | disposition home or self-care (01) ==
LOC: RADMRIMAIN 07:19
PROVIDERS: ATTEND Orthopaedic Surgery
DX: M16.0 Bilateral primary osteoarthritis of hip (principal); R93.7 Abnormal findings on diagnostic imaging of other parts of musculoskeletal system

== ENCOUNTER 2023-03-15 21:40 | Emergency (ER) | payer MEDICARE, BC ==
[2023-03-15 22:18] VITALS: RESP 18; TEMP 99.4
[2023-03-15] MEDS ORDERED: ONDANSETRON 4 MG/2 ML VIAL IVP STA (22:21)
[2023-03-15] MEDS ORDERED: SODIUM CHLORIDE 0.9% 1,000 ML IV STA (22:22)
[2023-03-15] MEDS ORDERED: KETOROLAC 15 MG/ML 1 ML VIAL IVP STA (22:50)
[2023-03-15 23:42] LABS: Basophils % (A) 0 %; Eosinophils # (A) 0.2 k/uL (0-0.7); Eosinophils % (A) 1 %; HCT 40.3 % (34.0-46.0); HGB 13.7 gm/dL (11.4-16.0); Lymphocytes # (A) 2.3 k/uL (1.0-4.8); Lymphocytes % (A) 16 %; MCH 31.9 pg (25.0-35.0); MCHC 34.1 g/dL (31.0-37.0); MCV 93.5 fL (80.0-100.0); Mean Platelet Volume 7.1; Monocytes # (A) 0.9 k/uL (0-1.0); Monocytes % (A) 6 %; Neutrophils # (A) 11.2 k/uL (1.3-7.7); Neutrophils % (A) 76 %; Platelet Count 253 k/uL (150-450); RBC 4.31 m/uL (3.80-5.40); WBC 14.7 k/uL (3.8-10.6)
[2023-03-15 23:49] LABS: Appearance,Urine Cloudy (Clear); Bilirubin,Urine Negative (Negative); Blood,Urine Small (Negative); Color,Urine Yellow; Glucose,Urine (UA) Negative (Negative); Ketones,Urine Negative (Negative); Leukocyte Esterase,Urine Negative (Negative); Mucus,Urine Many /hpf; Nitrite,Urine Negative (Negative); PH, Urine 5.5 (5.0-8.0); Protein,Urine Trace (Negative); RBC,Urine 5 /hpf (0-5); Specific Gravity,Urine 1.024 (1.001-1.035); Squamous Epithelial Cell,Urine 1 /hpf (0-4); WBC,Urine 2 /hpf (0-5)
[2023-03-15 23:52] LABS: Albumin 3.8 g/dL (3.5-5.0); Calcium 8.4 mg/dL (8.4-10.2); Potassium 3.7 mmol/L (3.5-5.1); Total Bilirubin 0.8 mg/dL (0.2-1.3); Total Protein 6.2 g/dL (6.3-8.2)
--- NOTE | 2023-03-16 00:19 | CT ---
EXAM: CT Abdomen and Pelvis Without Intravenous Contrast CLINICAL HISTORY: ITS.REASON CT Reason: left flank pain TECHNIQUE: Axial computed tomography images of the abdomen and pelvis without intravenous contrast. CTDI is 13.7 mGy and DLP is 775.8 mGy-cm. This CT exam was performed using one or more of the following dose reduction techniques: automated exposure control, adjustment of the mA and/or kV according to patient size, and/or use of iterative reconstruction technique. COMPARISON: 10/15/2022. 05/19/2022. FINDINGS: Lung bases: Best seen on series 204 image 12, located laterally near the left lung base there is a 0.6 cm noncalcified subpleural nodule of uncertain etiology. Follow-up should proceed based on the Fleischner Society guidelines. Minimal subsegmental atelectasis noted at the lung bases. Pleural space: Unremarkable. No pneumothorax. No pleural effusions. Heart: 0.4 cm pericardial effusion. Cardiomegaly. ABDOMEN: Liver: Fatty liver. Gallbladder and bile ducts: Status post cholecystectomy. No ductal dilation. Pancreas: See below. Spleen: Punctate calcified lesions within the spleen are compatible with previous granulomas disease. Adrenals: The adrenal glands, the head, body, tail of the pancreas are unremarkable. Kidneys and ureters: Unremarkable. No renal calculus or hydronephrosis. Stomach and bowel: Inflammatory changes are noted at the junction of the proximal the mid sigmoid colon compatible with acute diverticulitis without abscess formation. Small quantity of ingested material in the stomach. Moderate quantity of stool throughout the colon. Diverticulosis. No obstruction. PELVIS: Appendix: No findings to suggest acute appendicitis. Bladder: Bladder is underdistended per. No stones. Reproductive: Status post hysterectomy. ABDOMEN and PELVIS: Intraperitoneal space: Unremarkable. No free air. No significant fluid collection. Bones/joints: No acute fracture. No dislocation. Soft tissues: Unremarkable. Vasculature: Unremarkable. No abdominal aortic aneurysm. Lymph nodes: Unremarkable. No enlarged lymph nodes. IMPRESSION: Dominant finding of the current study is acute diverticulitis to the junction of the proximal the mid descending colon without abscess formation.
[2023-03-16] MEDS ORDERED: AMOXIC-POT CLAV 875-125MG 1 EACH TAB PO STA (00:30)
--- NOTE | 2023-03-16 00:42 | ED ---
Fever HPI - General Chief Complaint: Fever Stated Complaint: Back Pain,Fever Time Seen by Provider: 03/15/23 22:19 Source: patient Mode of arrival: ambulatory Limitations: no limitations - History of Present Illness Initial Comments: Patient is a 72-year-old female who presents to the emergency department for evaluation of fever. It started yesterday. Patient overall has malaise she reports a dull pain in her left lower back that wraps around to her left side. She denies injury. She also has a headache and nausea. No vomiting, constipation, diarrhea. Patient has history of kidney stone or diverticulitis. She denies chest pain, cold-like symptoms, burning with urination, blood in the urine. - Related Data Home Medications Medication Instructions Recorded Confirmed Flecainide Acetate [Tambocor] 150 mg PO BID 07/17/18 05/19/22 Cholecalciferol (Vitamin D3) 125 mcg PO DAILY 02/20/21 05/19/22 [Vitamin D3 (5000 Iu)] Aspirin 325 mg PO DAILY 02/15/22 05/19/22 Elderberry Fruit and Flower [Black 1 cap PO DAILY 02/15/22 05/19/22 Elderberry 575 mg Cap] Vitamin C/Biotin [Hair, Skin and 1 tab PO DAILY 02/15/22 05/19/22 Nails Chew] Ascorbic Acid [Vitamin C] 1,000 mg PO Q48H 05/19/22 05/19/22 Previous Rx's Medication Instructions Recorded Albuterol Inhaler [Ventolin Hfa 2 puff INHALATION RT-QID PRN 30 08/30/21 Inhaler] Days #1 unit Amoxic-Pot Clav 875-125Mg 1 tab PO BID 1 Days #28 tab 05/21/22 [Augmentin 875-125] metroNIDAZOLE [Flagyl] 500 mg PO TID #42 tab 05/21/22 Acetaminophen Tab [Tylenol Tab] 500 mg PO Q6H PRN #30 tablet 03/16/23 Amoxic-Pot Clav 875-125Mg 1 tab PO BID 7 Days #14 tab 03/16/23 [Augmentin 875-125] Ondansetron Odt [Zofran Odt] 4 mg PO Q12HR PRN #12 tab 03/16/23 Allergies Allergy/AdvReac Type Severity Reaction Status Date / Time Beef Containing Products AdvReac SEVERE Verified 03/15/23 22:11 MIGRAINES levofloxacin [From Levaquin] AdvReac Nausea & Verified 03/15/23 22:11 Vomiting & Diarrhea Review of Systems ROS Statement: Those systems with pertinent positive or pertinent negative responses have been documented in the HPI. ROS Other: All systems not noted in ROS Statement are negative. Past Medical History Past Medical History: Atrial Fibrillation History of Any Multi-Drug Resistant Organisms: None Reported Past Surgical History: Appendectomy, Section, Cholecystectomy, Hernia Repair, Hysterectomy, Tonsillectomy Past Anesthesia/Blood Transfusion Reactions: Postoperative Nausea & Vomiting (PONV) Past Psychological History: No Psychological Hx Reported Smoking Status: Never smoker Past Alcohol Use History: None Reported Past Drug Use History: None Reported - Past Family History Mother Family Medical History: No Reported History Father Family Medical History: Congestive Heart Failure (CHF), Diabetes Mellitus General Exam Limitations: no limitations General appearance: alert, in no apparent distress Head exam: Present: atraumatic, normocephalic, normal inspection Eye exam: Present: normal appearance, PERRL, EOMI. Absent: scleral icterus, conjunctival injection, periorbital swelling Respiratory exam: Present: normal lung sounds bilaterally. Absent: respiratory distress, wheezes, rales, rhonchi, stridor Cardiovascular Exam: Present: regular rate, normal rhythm, normal heart sounds. Absent: systolic murmur, diastolic murmur, rubs, gallop, clicks GI/Abdominal exam: Present: soft, normal bowel sounds. Absent: distended, tenderness, guarding, rebound, rigid Extremities exam: Present: normal inspection, full ROM, normal capillary refill Back exam: Present: normal inspection, full ROM, CVA tenderness (L). Absent: CVA tenderness (R), paraspinal tenderness, vertebral tenderness Neurological exam: Present: alert, oriented X3, CN II-XII intact Psychiatric exam: Present: normal affect, normal mood Skin exam: Present: warm, dry, intact, normal color. Absent: rash Course Vital Signs 03/15/23 03/16/23 22:14 00:58 Temperature 99.4 F Pulse Rate 68 59 L Respiratory 18 18 Rate Blood Pressure 128/77 129/57 O2 Sat by Pulse 94 L 95 Oximetry Medical Decision Making - Medical Decision Making Was pt. sent in by a medical professional or institution (Dr., PA, CLAY TEMPERER, urgent care, hospital, or usp...) When possible be specific @ -No Did you speak to anyone other than the patient for history (EMS, parent, family, police, friend...)? What history was obtained from this source @ -No Did you review nursing and triage notes (agree or disagree)? Why? @ -I reviewed and agree with nursing and triage notes Were old charts reviewed (outside hosp., previous admission, EMS record, old EKG , old radiological studies, urgent care reports/EKG's, usp records)? Report findings @ -No old charts were reviewed Differential Diagnosis (chest pain, altered mental status, abdominal pain women, abdominal pain men, vaginal bleeding, weakness, fever, dyspnea, syncope, headache, dizziness, GI bleed, back pain, seizure, CVA, palpatations, mental health)? @ -Differential Abdominal Pain Women: Appendicitis, Cholecystitis, diverticulosis, ischemic bowel, pancreatitis, hepatitis, UTI, gastroenteritis, AAA, incarcerated hernia, bowel obstruction, constipation, inflammatory bowel, hepatitis, peptic ulcer disease, splenic infarction, perforated viscus, vulvitis, ovarian torsion, PID, kidney stone, placenta abruption, this is not meant to be an all-inclusive list EKG interpreted by me (3pts min.). @ -As above X-rays interpreted by me (1pt min.). @ -None done CT interpreted by me (1pt min.). @ -Yes, CT of the abdomen and pelvis shows diverticulitis the sigmoid colon without abscess formation U/S interpreted by me (1pt. min.). @ -None done What testing was considered but not performed or refused? (CT, X-rays, U/S, labs)? Why? @ -None What meds were considered but not given or refused? Why? @ -None Did you discuss the management of the patient with other professionals (reina sumner i.eJody Livingston, PA, CLAY TEMPERER, lab, RT, psych nurse, forensic social worker, fur blowing machine attendant, teacher, environmental health officer, adult protective caseworker)? Give summary @ -No Was smoking cessation discussed for >3mins.? @ -No Was critical care preformed (if so, how long)? @ -No Were there social determinants of health that impacted care today? How? (Homelessness, low income, unemployed, alcoholism, drug addiction, transportation, low edu. Level, literacy, decrease access to med. care, halfway, rehab)? @ -No Was there de-escalation of care discussed even if they declined (Discuss DNR or withdrawal of care, Hospice)? DNR status @ -No What co-morbidities impacted this encounter? (DM, HTN, Smoking, COPD, CAD, Cancer, CVA, ARF, Chemo, Hep., AIDS, mental health diagnosis, sleep apnea, morbid obesity)? @ -None Was patient admitted / discharged? Hospital course, mention meds given and route, prescriptions, significant lab abnormalities, going to OR and other pertinent info. @ -Patient presenting with left back pain, fever, nausea, headache. She is afebrile currently. Laboratory studies obtained. There is leukocytosis of 14.7. There is mild acute kidney injury, creatinine 1.17, BUN 19. Other laboratory studies are relatively unremarkable. CT of the abdomen and pelvis shows diverticulitis of the sigmoid colon there is no abscess or perforation Pain and nausea controlled. Results discussed with patient. Patient will be discharged with Augmentin and symptom management. She was given paper prescriptions as her pharmacy is closed on Friday. We discussed return parameters. Undiagnosed new problem with uncertain prognosis? @ -[o]Drug Therapy requiring intensive monitoring for toxicity (Heparin, Nitro, Insulin, Cardizem)? @ -[o]Were any procedures done? @ -[o]Diagnosis/symptom? @ Diverticulitis Acute, or Chronic, or Acute on Chronic? @ -acute Uncomplicated (without systemic symptoms) or Complicated (systemic symptoms)? @ -complicated Side effects of treatment? @ -No Exacerbation, Progression, or Severe Exacerbation? @ -No Poses a threat to life or bodily function? How? (Chest pain, [place], [place], pneumonia, PE, COPD, DKA, ARF, appy, cholecystitis, CVA, Diverticulitis, Homicidal, Suicidal, threat to staff... and all critical care pts) @ -Not currently Dr. Carballo is my attending - Lab Data Result diagrams: 03/15/23 22:59 03/15/23 22:59 Lab Results 03/15/23 03/15/23 03/15/23 Range/Units 22:59 22:59 22:59 WBC 14.7 H (3.8-10.6) k/uL RBC 4.31 (3.80-5.40) m/uL Hgb 13.7 (11.4-16.0) gm/dL Hct 40.3 (34.0-46.0) % MCV 93.5 (80.0-100.0) fL MCH 31.9 (25.0-35.0) pg MCHC 34.1 (31.0-37.0) g/dL RDW 13.0 (11.5-15.5) % Plt Count 253 (150-450) k/uL MPV 7.1 Neutrophils % 76 % Lymphocytes % 16 % Monocytes % 6 % Eosinophils % 1 % Basophils % 0 % Neutrophils # 11.2 H (1.3-7.7) k/uL Lymphocytes # 2.3 (1.0-4.8) k/uL Monocytes # 0.9 (0-1.0) k/uL Eosinophils # 0.2 (0-0.7) k/uL Basophils # 0.0 (0-0.2) k/uL Sodium (137-145) mmol/L Potassium (3.5-5.1) mmol/L Chloride (98-107) mmol/L Carbon Dioxide (22-30) mmol/L Anion Gap mmol/L BUN (7-17) mg/dL Creatinine (0.52-1.04) mg/dL Est GFR (CKD-EPI)AfAm (>60 ml/min/1.73 sqM) Est GFR (CKD-EPI)NonAf (>60 ml/min/1.73 sqM) Glucose (74-99) mg/dL Plasma Lactic Acid Jeremy (0.7-2.0) mmol/L Calcium (8.4-10.2) mg/dL Total Bilirubin (0.2-1.3) mg/dL AST (14-36) U/L ALT (4-34) U/L Alkaline Phosphatase (38-126) U/L Total Protein (6.3-8.2) g/dL Albumin (3.5-5.0) g/dL Urine Color Yellow Urine Appearance Cloudy H (Clear) Urine pH 5.5 (5.0-8.0) Ur Specific [place] 1.024 (1.001-1.035) Urine Protein Trace H (Negative) Urine Glucose (UA) Negative (Negative) Urine Ketones Negative (Negative) Urine Blood Small H (Negative) Urine Nitrite Negative (Negative) Urine Bilirubin Negative (Negative) Urine Urobilinogen 2.0 (<2.0) mg/dL Ur Leukocyte Esterase Negative (Negative) Urine RBC 5 (0-5) /hpf Urine WBC 2 (0-5) /hpf Ur Squamous Epith Cells 1 (0-4) /hpf Urine Mucus Many H (None) /hpf Coronavirus (PCR) Not Detected (Not Detectd) 03/15/23 03/15/23 Range/Units 22:59 22:59 WBC (3.8-10.6) k/uL RBC (3.80-5.40) m/uL Hgb (11.4-16.0) gm/dL Hct (34.0-46.0) % MCV (80.0-100.0) fL MCH (25.0-35.0) pg MCHC (31.0-37.0) g/dL RDW (11.5-15.5) % Plt Count (150-450) k/uL MPV Neutrophils % % Lymphocytes % % Monocytes % % Eosinophils % % Basophils % % Neutrophils # (1.3-7.7) k/uL Lymphocytes # (1.0-4.8) k/uL Monocytes # (0-1.0) k/uL Eosinophils # (0-0.7) k/uL Basophils # (0-0.2) k/uL Sodium 138 (137-145) mmol/L Potassium 3.7 (3.5-5.1) mmol/L Chloride 103 (98-107) mmol/L Carbon Dioxide 24 (22-30) mmol/L Anion Gap 11 mmol/L BUN 19 H (7-17) mg/dL Creatinine 1.17 H (0.52-1.04) mg/dL Est GFR (CKD-EPI)AfAm 54 (>60 ml/min/1.73 sqM) Est GFR (CKD-EPI)NonAf 47 (>60 ml/min/1.73 sqM) Glucose 109 H (74-99) mg/dL Plasma Lactic Acid Jeremy 0.7 (0.7-2.0) mmol/L Calcium 8.4 (8.4-10.2) mg/dL Total Bilirubin 0.8 (0.2-1.3) mg/dL AST 17 (14-36) U/L ALT 17 (4-34) U/L Alkaline Phosphatase 125 (38-126) U/L Total Protein 6.2 L (6.3-8.2) g/dL Albumin 3.8 (3.5-5.0) g/dL Urine Color Urine Appearance (Clear) Urine pH (5.0-8.0) Ur Specific [place] (1.001-1.035) Urine Protein (Negative) Urine Glucose (UA) (Negative) Urine Ketones (Negative) Urine Blood (Negative) Urine Nitrite (Negative) Urine Bilirubin (Negative) Urine Urobilinogen (<2.0) mg/dL Ur Leukocyte Esterase (Negative) Urine RBC (0-5) /hpf Urine WBC (0-5) /hpf Ur Squamous Epith Cells (0-4) /hpf Urine Mucus (None) /hpf Coronavirus (PCR) (Not Detectd) Disposition Clinical Impression: Diverticulitis Disposition: HOME SELF-CARE Condition: Good Instructions (If sedation given, give patient instructions): Diverticulitis (ED) Additional Instructions: Take medication as directed. Please follow-up with your primary care provider in 1-2 days. Return to the emergency department if you experience new, concerning, or worsening symptoms. Prescriptions: Amoxic-Pot Clav 875-125Mg [Augmentin 875-125] 1 tab PO BID 7 Days #14 tab Acetaminophen Tab [Tylenol Tab] 500 mg PO Q6H PRN #30 tablet PRN Reason: pain Ondansetron Odt [Zofran Odt] 4 mg PO Q12HR PRN #12 tab PRN Reason: Nausea Is patient prescribed a controlled substance at d/c from ED?: No Referrals: Daisy Leo MD [Primary Care Provider] - 1-2 days
[2023-03-16 00:59] VITALS: BP 129/57; PULSE 59
== END 2023-03-16 01:07 | disposition home or self-care (01) ==
LOC: EC 21:40
DX: K57.92 Diverticulitis of intestine, part unspecified, without perforation or abscess without bleeding (principal); I48.91 Unspecified atrial fibrillation; Z79.82 Long term (current) use of aspirin; Z20.822 Contact with and (suspected) exposure to COVID-19
CPT/HCPCS: 36415; 74176; 80053; 81001; 83605; 85025; 87635; 96374; 96375; 99284

== ENCOUNTER → 2023-04-17 | Outpatient (CLI) | payer MEDICARE ==
[2023-04-17 15:56] LABS: Basophils # (A) 0.05 X 10*3/uL (0.00-0.10); Basophils % (A) 0.6 %; Eosinophils # (A) 0.26 X 10*3/uL (0.04-0.35); Eosinophils % (A) 3.3 %; HGB 13.8 g/dL (12.0-15.0); Immature Grans, Automated 0.5 %; Lymphocytes # (A) 1.75 X 10*3/uL (0.90-5.00); Lymphocytes % (A) 22.4 %; MCH 31.9 pg (27.0-32.0); MCHC 32.9 g/dL (32.0-37.0); MCV 97.2 fL (80.0-97.0); Mean Platelet Volume 9.8 fL (9.5-12.2); Monocytes # (A) 0.65 X 10*3/uL (0.20-1.00); Monocytes % (A) 8.3 %; NRBC Per 100 WBC 0 /100 WBCS (0.0-0.0); Neutrophils # (A) 5.07 X 10*3/uL (1.80-7.70); Neutrophils % (A) 64.9 %; Platelet Count 236 X 10*3/uL (140-440); RBC 4.32 X 10*6/uL (4.10-5.20); RDW 13.1 % (11.5-14.5); WBC 7.82 X 10*3/uL (4.50-10.00)
[2023-04-17 16:33] LABS: ALT 17 U/L (8-44); AST 15 U/L (13-35); African American GFR (CKD) 65.6 (60.0-200.0); Albumin 4.4 g/dL (3.8-4.9); Alkaline Phosphatase 127 U/L (41-126); Blood Urea Nitrogen 18.2 mg/dL (9.0-27.0); Calcium 9.3 mg/dL (8.7-10.3); Chloride 106 mmol/L (96-109); Chol/HDL Ratio 2.76 Ratio; Glucose 100 mg/dL (70-110); Non-African American GFR(CKD) 56.6 (60.0-200.0); Potassium 4.6 mmol/L (3.5-5.5); Sodium 142 mmol/L (135-145); Total Protein 6.4 g/dL (6.2-8.2); VLDL Calculation 13.22 mg/dL (5.00-40.00)
== END | disposition home or self-care (01) ==
LOC: LABWHC1 09:10
PROVIDERS: ATTEND Internal Medicine
DX: Z00.00 Encounter for general adult medical examination without abnormal findings (principal); I10 Essential (primary) hypertension; D51.9 Vitamin B12 deficiency anemia, unspecified; E78.2 Mixed hyperlipidemia; E55.9 Vitamin D deficiency, unspecified
CPT/HCPCS: 36415; 80053; 80061; 84439; 84443; 85025

== ENCOUNTER → 2023-12-23 | Outpatient (CLI) | payer MEDICARE ==
--- NOTE | 2023-12-23 13:11 | XR ---
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 Additional bending and flexion views. FINDINGS: No evidence of any acute osseous pathology. No evidence of loss of vertebral body height i s seen. There is normal alignment of the lumbar vertebral bodies. Moderate scattered disc space narro wing. Multilevel marginal osteophyte formation throughout the visualized spine. There is facet joint arthropathy throughout the spine. Scattered at least mild neural foraminal stenosis. Right upper quad rant cholecystectomy clips. No abnormal alignment bending and flexion views. IMPRESSION: 1. No acute fracture. 2. Moderate multilevel disc degeneration.
--- NOTE | 2023-12-23 17:49 | BD ---
EXAMINATION TYPE: Axial Bone Density DATE OF EXAM: 12/23/2023 CLINICAL HISTORY: 73 years old Female. ICD-10 CODE: Z12.31 SCREENING MAMMO Height: 5 ft 6 1/2 in Weight: 202 FRAX RISK QUESTIONS: Alcohol (3 or more units per day): no Family History (Parent hip fracture): yes Glucocorticoids (More than 3mos): no (Ex: prednisone, prednisolone, methylprednisolone, dexamethasone, and hydrocortisone). History of Fracture in Adulthood: no Secondary Osteoporosis: 1. Type 1 Diabetes: no 2. Hyperthyroidism: no 3. Menopause before 45: yes 4. Malnutrition: no 5. Chronic liver disease: no Rheumatoid Arthritis: no Current Tobacco Use: no RISK FACTORS HISTORY OF: Surgery to Spine/Hip(right/left)/Wrist (right/left): no MEDICATIONS: Thyroid Medications: none Osteoporosis Medications: none EXAM MEASUREMENTS: Bone mineral densitometry was performed using the [employer] System. Bone mineral density as measured about the Lumbar spine is: ----- L1-L4(G/cm2): 1.042 T Score Values are as follows: ----- L1: -1.8 ----- L2: -1.4 ----- L3: -1.7 ----- L4: -0.1 ----- L1-L4: -1.1 Z Score Values are as follows: ----- L1: -1.0 ----- L2: -0.5 ----- L3: -0.9 ----- L4: 0.8 ----- L1-L4: -0.3 Bone mineral density has: increased 1.0 % since study of: 2020 Bone mineral density about the R hip (g/cm2): 0.910 Bone mineral density about the L hip (g/cm2): 0.846 T Score values are as follows: -----R Neck: -0.9 -----L Neck: -1.4 -----R Total: 0.3 -----L Total: -0.2 Z Score values are as follows: -----R Neck: 0.3 -----L Neck: -0.2 -----R Total: 1.2 -----L Total: 0. Bone mineral density has: decreased -0.4 % since study of: 2020 FRAX%s: The graph provided illustrates a 14.9% chance for a major osteoporotic fx and a 4.2 % chance for the hips probability for fx in 10 years time. IMPRESSION: Osteopenia (T Score between -2.5 and -1). There is slightly increased risk of fracture and the patient may be considered for treatment. Re-Screen 2-5 years. NOTE: T-SCORE=SD OF THE YOUNG ADULT MEAN.
--- NOTE | 2023-12-24 12:58 | MM ---
Reason for Exam: Screening (asymptomatic). Last mammogram was performed 1 year(s) and 3 month(s) ago. Patient History: Menarche at age 12. First Full-Term at age 31. Late child-bearing (after 31). Left ovary removed at age 34. Right ovary removed at age 34. Hysterectomy at age 34. Postmenopausal. Sister had breast cancer. Risk Values: Cinthya 5 year model risk: 3.9%. NCI Lifetime model risk: 9.9%. Prior Study Comparison: 01/14/2019 Screening Mammogram, [facility]. 03/13/2021 Bilateral Screening Mammogram, [facility]. 10/15/2022 Bilateral MG 3D screening mammo w/cad, [facility]. Tissue Density: There are scattered fibroglandular densities. Findings: Analyzed By CAD. There is no suspicious group of microcalcifications or new suspicious mass. Overall Assessment: Negative, BI-RAD 1 Management: Screening Mammogram of both breasts in [address] [facility] will attempt to contact patient to return for supplemental views and ultrasound if indicated. Patient should continue monthly self-breast exams. A clinical breast exam by your physician is recommended on an annual basis. This exam should not preclude additional follow-up of suspicious palpable abnormalities. Note on Cinthya scores and lifetime risk: 1. A Cinthya score greater than 3% is considered moderate risk. If this is the case, consider specialist referral to assess eligibility for a risk reducing agent. 2. If overall lifetime risk for the development of breast cancer is 20% or higher, the patient may qualify for future screening with alternating mammogram and breast MRI. Electronically signed and approved by: Colin Laboy DO
== END | disposition home or self-care (01) ==
LOC: RADMAMWWP 12:37
PROVIDERS: ATTEND Internal Medicine
DX: Z12.31 Encounter for screening mammogram for malignant neoplasm of breast (principal); M85.851 Other specified disorders of bone density and structure, right thigh; M51.36 Other intervertebral disc degeneration, lumbar region; M47.816 Spondylosis without myelopathy or radiculopathy, lumbar region; Z78.0 Asymptomatic menopausal state
CPT/HCPCS: 72114; 77063; 77067; 77080

== ENCOUNTER → 2023-12-24 | Outpatient (CLI) | payer MEDICARE ==
[2023-12-24 09:18] LABS: Appearance,Urine Clear (Clear); Bilirubin,Urine Negative (Negative); Blood,Urine Small (Negative); Color,Urine Light Yellow; Glucose,Urine (UA) Negative (Negative); Hyaline Casts,Urine 3 /lpf (0-2); Ketones,Urine Negative (Negative); Leukocyte Esterase,Urine Trace (Negative); Mucus,Urine Occasional /hpf; Nitrite,Urine Negative (Negative); Protein,Urine Negative (Negative); RBC,Urine 2 /hpf (0-5); Specific Gravity,Urine 1.019 (1.001-1.035); Urobilinogen,Urine <2.0 mg/dL (<2.0); WBC,Urine 2 /hpf (0-5)
[2023-12-24 15:15] LABS: Basophils # (A) 0.04 X 10*3/uL (0.00-0.10); Basophils % (A) 0.6 %; Eosinophils # (A) 0.22 X 10*3/uL (0.04-0.35); Eosinophils % (A) 3.1 %; HCT 40.5 % (37.2-46.3); HGB 13.5 g/dL (12.0-15.0); Lymphocytes # (A) 1.57 X 10*3/uL (0.90-5.00); Lymphocytes % (A) 22.3 %; MCH 32.5 pg (27.0-32.0); MCHC 33.3 g/dL (32.0-37.0); MCV 97.6 FL (80.0-97.0); Mean Platelet Volume 9.6 FL (9.5-12.2); Monocytes # (A) 0.55 X 10*3/uL (0.20-1.00); Monocytes % (A) 7.8 %; NRBC Per 100 WBC 0 X 10*3/uL (0.00-0.01); Neutrophils # (A) 4.63 X 10*3/uL (1.80-7.70); Neutrophils % (A) 65.9 %; Platelet Count 236 X 10*3/uL (140-440); RBC 4.15 X 10*6/uL (4.10-5.20); RDW 13.2 % (11.5-14.5); WBC 7.03 X 10*3/uL (4.50-10.00)
[2023-12-24 16:41] LABS: ALT 17 U/L (8-44); AST 15 U/L (13-35); Albumin 4.4 g/dL (3.8-4.9); Alkaline Phosphatase 120 U/L (41-126); BUN/Creat Ratio 19.44 Ratio (12.00-20.00); Blood Urea Nitrogen 17.5 mg/dL (9.0-27.0); Calcium 9.6 mg/dL (8.7-10.3); Carbon Dioxide 24.8 mmol/L (21.6-31.8); Chloride 106 mmol/L (96-109); Chol/HDL Ratio 2.71 Ratio; Glucose 101 mg/dL (70-110); LDL Cholesterol,Calculated 71.5 mg/dL (0.0-131.0); Potassium 4.6 mmol/L (3.5-5.5); Sodium 143 mmol/L (135-145); Total Bilirubin 0.5 mg/dL (0.3-1.2); Total Protein 6.4 g/dL (6.2-8.2); VLDL Calculation 10.46 mg/dL (5.00-40.00)
== END | disposition home or self-care (01) ==
LOC: LABWHC1 08:28
PROVIDERS: ATTEND Internal Medicine
DX: E78.2 Mixed hyperlipidemia (principal); D51.9 Vitamin B12 deficiency anemia, unspecified; M85.851 Other specified disorders of bone density and structure, right thigh
CPT/HCPCS: 36415; 80053; 80061; 81001; 82306; 82607; 82746; 83036; 84443; 85025

== ENCOUNTER → 2024-12-13 | Outpatient (CLI) | payer MEDICARE ==
[2024-12-13 15:08] LABS: HGB 13.5 g/dL (12.0-15.0); MCH 31.8 pg (27.0-32.0); MCHC 32.9 g/dL (32.0-37.0); MCV 96.7 FL (80.0-97.0); Mean Platelet Volume 9.7 FL (9.5-12.2); NRBC Per 100 WBC 0 X 10*3/uL (0.00-0.01); Platelet Count 262 X 10*3/uL (140-440); RBC 4.24 X 10*6/uL (4.10-5.20); RDW 13.1 % (11.5-14.5); WBC 8.24 X 10*3/uL (4.50-10.00)
[2024-12-13 16:17] LABS: ALT 15 U/L (8-44); AST 15 U/L (13-35); Albumin 4.3 g/dL (3.8-4.9); Albumin/Globulin Ratio 2.15 Ratio (1.60-3.17); Alkaline Phosphatase 122 U/L (41-126); Bilirubin, Conjugated 0.29 mg/dL (0.20-0.40); Bilirubin,Unconjugated 0.4 mg/dL (0.2-1.0); Blood Urea Nitrogen 19.8 mg/dL (9.0-27.0); Calcium 9.4 mg/dL (8.7-10.3); Carbon Dioxide 25.5 mmol/L (21.6-31.8); Chloride 107 mmol/L (96-109); Chol/HDL Ratio 3.03 Ratio; Glucose 107 mg/dL (70-110); LDL Cholesterol,Calculated 82.9 mg/dL (0.0-131.0); Potassium 4.6 mmol/L (3.5-5.5); Sodium 143 mmol/L (135-145); Total Bilirubin 0.7 mg/dL (0.3-1.2); Total Protein 6.3 g/dL (6.2-8.2); VLDL Calculation 12.24 mg/dL (5.00-40.00)
[2024-12-13 21:14] LABS: NT-Pro-B-Type Natriuretic Pept 110 pg/mL (0-125)
== END | disposition home or self-care (01) ==
LOC: LABWHC1 09:05
PROVIDERS: ATTEND Internal Medicine Cardiovascular Disease
DX: I11.9 Hypertensive heart disease without heart failure (principal); I25.10 Atherosclerotic heart disease of native coronary artery without angina pectoris; E78.2 Mixed hyperlipidemia
CPT/HCPCS: 36415; 80053; 80061; 82248; 83880; 84443; 85027; 86141

== ENCOUNTER → 2025-02-25 | Outpatient (CLI) | payer MEDICARE ==
--- NOTE | 2025-02-25 16:05 | MM ---
Reason for Exam: Screening (asymptomatic). Last mammogram was performed 1 year(s) and 2 month(s) ago. Patient History: Menarche at age 12. First Full-Term at age 31. Late child-bearing (after 31). Left ovary removed at age 34. Right ovary removed at age 34. Hysterectomy at age 34. Postmenopausal. Sister had breast cancer. Risk Values: Cinthya 5 year model risk: 3.9%. NCI Lifetime model risk: 9.4%. Prior Study Comparison: 03/13/2021 Bilateral Screening Mammogram, [facility]. 10/15/2022 Bilateral MG 3D screening mammo w/cad, [facility]. 12/23/2023 Bilateral MG 3D screening mammo w/cad, [facility]. Tissue Density: There are scattered areas of fibroglandular density. Findings: Analyzed By CAD. Asymmetric densities medial left CC view anterior depth remain unchanged when compared back to the 2020 exam. Focal asymmetry left upper outer quadrant middle depth is unchanged. There is no suspicious group of microcalcifications or new suspicious mass in either breast. Overall Assessment: Benign, BI-RAD 2 Management: Screening Mammogram of both breasts in 1 year. Further clinical management of patient's deep right breast pain. See note below in regards to the patient's increased 5 year Cinthya score. Patient should continue monthly self-breast exams. A clinical breast exam by your physician is recommended on an annual basis. This exam should not preclude additional follow-up of suspicious palpable abnormalities. Note on Cinthya scores and lifetime risk: 1. A Cinthya score greater than 3% is considered moderate risk. If this is the case, consider specialist referral to assess eligibility for a risk reducing agent. 2. If overall lifetime risk for the development of breast cancer is 20% or higher, the patient may qualify for future screening with alternating mammogram and breast MRI. [facility], , 02/25/2025 4:02 PM. Electronically signed and approved by: Jt Seymour M.D. Radiologist
== END | disposition home or self-care (01) ==
LOC: RADMAMWWP 09:21
PROVIDERS: ATTEND Internal Medicine
DX: Z12.31 Encounter for screening mammogram for malignant neoplasm of breast (principal); R92.323 Mammographic fibroglandular density, bilateral breasts; Z78.0 Asymptomatic menopausal state; Z80.3 Family history of malignant neoplasm of breast
CPT/HCPCS: 77063; 77067